=== PATIENT | female | born 1970 | race Caucasian/White ===

== ENCOUNTER → 2018-07-28 16:47 | Outpatient (CLI) | payer BC, SELFPAY ==
[2018-07-28 17:54] LABS: Absolute Lymphocyte Count 2.38 X10^3/ul (0.83-4.51); Absolute Neutrophil Count 6.2 X10^3/uL (2.0-7.7); Basophil# 0.03 X10^3/uL; Basophil% 0.3 % (0-1); Eosinophil# 0.26 X10^3/uL; Eosinophils% 2.7 % (0-5); Hematocrit 40.7 % (37-47); Hemoglobin 13.8 g/dl (12.0-15.0); Lymphocyte # 2.38 X10^3/ul (4.0); Lymphocyte % 25.1 % (19-41); Mean Corp Hgb Conc 33.9 g/gl (32-36); Mean Corpuscular Hgb 31.8 pg (27.0-32.0); Mean Corpuscular Volume 93.8 fL (81-99); Mean Platelet Vol. 10.9 fl (6.2-12.0); Monocyte# 0.64 X10^3/uL; Monocyte% 6.7 % (0-10); Neutrophil # 6.18 X10^3/uL (2.7-7.7); Neutrophil % 65.1 % (47-70); Platelet Count 339 K/mm3 (150-450); RBC Distribution Width CV 13.8 % (11.6-14.6); RBC Distribution Width SD 45.5 fl (35.1-43.9); Red Blood Count 4.34 M/mm3 (4.2-5.4); White Blood Count 9.5 K/mm3 (4.4-11.0)
[2018-07-28 17:58] LABS: POSITIVE COUNT NO; POSITIVE DIFFERENTIAL NO; POSITIVE MORPHOLOGY NO
[2018-07-28 18:37] LABS: AST(SGOT) 19 U/L (15-37); Alanine Aminotransfer ALT/SGPT 43 U/L (13-56); Albumin, Serum 3.7 g/dL (3.2-5.0); Alkaline Phosphatase 148 U/L (45-117); Bilirubin, Direct 0.07 mg/dL (0.00-0.30); Protein, Total 7.7 g/dL (6.4-8.2)
[2018-08-01 20:07] LABS: QNTFERON TB Ag Minus Nil Value < 0 IU/mL (.); QNTFERON TB Ag Value 0.03 IU/mL (.); QNTFERON TB Mitogen Value > 10.00 IU/mL (.); QNTFERON TB Nil Value 0.04 IU/mL (.)
[2018-08-02 13:57] LABS: QNTIFERON TB Gold Negative (Negative)
== END ==
PROVIDERS: Visit Provider Dermatology
DX: Z79.899 Other long term (current) drug therapy (principal)
CPT/HCPCS: 36415; 80076; 85025; 86480

== ENCOUNTER → 2019-03-26 12:44 | Outpatient (CLI) | payer BC, SELFPAY ==
[2019-01-01 08:48] VITALS: BMI 46.0
[2019-01-22 16:32] VITALS: BMI 46.0
--- NOTE | 2019-03-26 12:46 | CT_ITS ---
STUDY: CT CHEST WITH CONTRAST REASON FOR EXAM: Female, 48 years old. Lymphadenopathy. Pulmonary nodules. RADIATION DOSAGE (If Supplied By Facility): CTDIvol = ( 31.01 ) mGy, DLP = ( 838.54 ) mGycm TECHNIQUE: Transaxial imaging was performed following intravenous administration of 100 ml of Isovue 300 contrast material. Coronal and sagittal reformatted images were created. Individualized dose optimization techniques were used for this CT. COMPARISON: None FINDINGS: There are no pulmonary infiltrates or pleural effusions. There are no pulmonary nodules or masses. There is no pneumothorax. The heart and pericardium are within normal limits. There is mediastinal lymphadenopathy with the largest node measuring 1.3 cm in the upper paratracheal region. There is no evidence of thoracic aortic aneurysm. Images through the upper abdomen demonstrate a 2.2 cm indeterminate right adrenal nodule. There is fatty infiltration of the liver. There are no destructive osseous lesions. CT/Chest WITH Contrast IMPRESSION: Mild mediastinal lymphadenopathy. Clear lungs. Fatty liver. 2.2 cm indeterminate right adrenal nodule. Electronically Signed: Jean Kelly, at 15:40 EDT Tel , Service support ,
--- NOTE | 2019-03-27 08:04 | PFT ---
INTRODUCTION: The patient is a 48-year-old female that presents for pulmonary function studies secondary to a diagnosis of dyspnea. Respiratory therapy reports good patient effort. Bronchodilators were used during testing. INTERPRETATION: Forced expiration spirometry demonstrates no evidence of a large airways obstructive ventilatory defect. There was no significant response to aerosolized bronchodilators. Spirograms are of good quality and plateau normally. Body plethysmography was performed and reveals lung volumes to be within normal limits. Diffusing capacity by single breath CO is also within normal limits at 77% of predicted. IMPRESSION: Essentially normal pulmonary function studies.
== END ==
PROVIDERS: Family Provider Nurse Practitioner Family; PCP Nurse Practitioner Family; Referring Provider Internal Medicine Critical Care Medicine; Visit Provider Internal Medicine Critical Care Medicine
DX: R06.00 Dyspnea, unspecified (principal); R59.0 Localized enlarged lymph nodes; Z72.0 Tobacco use
CPT/HCPCS: 71260; 94060; 94726; 94729; Q9967

== ENCOUNTER → 2020-12-20 08:35 | Outpatient (CLI) | payer BC, SELFPAY ==
[2019-04-09 06:43] VITALS: BMI 45.6
[2020-12-20 10:34] LABS: Absolute Lymphocyte Count 1.69 X10^3/uL (0.83-4.51); Absolute Neutrophil Count 4.2 X10^3/uL (2.0-7.7); Basophil# 0.03 X10^3/uL; Basophil% 0.5 % (0-1); Eosinophils% 1.5 % (0-5); Hematocrit 41.6 % (37-47); Hemoglobin 13.9 g/dL (12.0-15.0); Lymphocyte # 1.69 X10^3/ul (4.0); Lymphocyte % 25.9 % (19-41); Mean Corp Hgb Conc 33.4 g/dL (32-36); Mean Corpuscular Hgb 31.5 pg (27.0-32.0); Mean Corpuscular Volume 94.3 fL (81-99); Mean Platelet Vol. 10.4 fl (6.2-12.0); Monocyte# 0.44 X10^3/uL; Monocyte% 6.7 % (0-10); NRBC Flagged by Analyzer 0 % (0-5); Neutrophil # 4.23 X10^3/uL (2.7-7.7); Neutrophil % 64.9 % (47-70); Platelet Count 340 K/mm3 (150-450); RBC Distribution Width CV 13.7 % (11.6-14.6); RBC Distribution Width SD 47.2 fl (35.1-43.9); Red Blood Count 4.41 M/mm3 (4.2-5.4); White Blood Count 6.5 K/mm3 (4.4-11.0)
[2020-12-20 10:47] LABS: AST(SGOT) 20 U/L (15-37); Alanine Aminotransfer ALT/SGPT 65 U/L (13-56); Albumin, Serum 3.3 g/dL (3.2-5.0); Alkaline Phosphatase 142 U/L (45-117); Bilirubin, Direct 0.06 mg/dL (0.00-0.30); Globulin 3.8 g/dL (2.2-4.2); Protein, Total 7.1 g/dL (6.4-8.2)
[2020-12-23 03:07] LABS: QNTFERON TB Mitogen Value > 10.00 IU/mL (.); QNTFERON TB Nil Value 0.02 IU/mL (.); QNTFERON TB1+ Ag Value 0.05 IU/mL (.); QNTFERON TB2+ Ag Value 0.03 IU/mL (.)
[2020-12-23 12:26] LABS: QNTIFERON TB Positive Criteria Negative (Negative)
== END ==
PROVIDERS: PCP Nurse Practitioner Family; Referring Provider Dermatology; Visit Provider Dermatology
DX: L40.0 Psoriasis vulgaris (principal); Z79.899 Other long term (current) drug therapy
CPT/HCPCS: 36415; 80076; 85025; 86480

== ENCOUNTER → 2023-11-14 | Outpatient (CLI) | payer BC, SELFPAY ==
--- OUTSIDE RECORDS SUMMARY | 2023-11-14 07:05 | XMS RPT_ITS | CCD ---
Author Name Unknown Address [address] [place] [address] Organization [facility] Care Team Providers Care Ginner Name Role Phone Camara, [place] L Unavailable Unavailable Camara, [place] L Unavailable Unavailable Camara, [place] L Unavailable Unavailable Camara, [place] L Unavailable Unavailable SONAL CRUZ Unavailable Unavailable DEHASS ELDER, MAMIE Unavailable Unavailable SRINIVAS BRICEÑO Unavailable Unavailab le DEHASS ELDER, MAMIE Unavailable Unavailable SRINIVAS BRICEÑO Unavailable Unavailab le DEHASS ELDER, MAMIE Unavailable Unavailable Dehass Elder, Mamie Unavailable [phone] KELLOGGLILLIAN Marcial Unavailable Unavailable SELF, SELF Unavailable Unavailable Unavailable Primary Care Provider UnavailMamie Benjamin Primary Care Provider [phone] DEHASS ELDER, MAMIE Primary Care Unavailable SURYA BRUCE Attending Unavailable CRISTY RAMOS Primary Care Physicia n REMINGTON HOLMAN Attending Unavailable CLAUDINE WHALEY Attending Unavail able Mamie Barlow CNP Primary Care Provider BRANDY LEO MD Attending Unavailable CRISTY RAMOS Primary Care Unava ilable KIMBERLY MILES Unavailable EITAN BARRY MD Attending Unavailable CRISTY RAMOS Primary Care Unava ilable CRISTY RAMOS Primary Care Unava ilable QUENTIN DUBOSE PA-C Attending Unavailable BRANDY LEO MD Attending Unavailable CRISTY RAMOS Primary Care Unava ilable BRANDY LEO MD Attending Unavailable CRISTY RAMOS Primary Care Unava ilable Unavailable Primary Care Provider Unavailkarlos DOWS, MYRTLE M.D. Consulting Unavailab ELIANA Kaufman Admitting Unavailable ELIANA ALCANTAR Attending Unavailable CRISTY OWEN CNP Referring Unavailable CRISTY OWEN CNP Consulting Unavailable JOHN CLAYTON DO Attending Unavailable JOHN CLAYTON DO Primary Care Unavailable JOHN CLAYTON DO Admitting Unavailable PROVIDER, UNKNOWN Consulting Unavailable PROVIDER, UNKNOWN Consulting Unavailable Allergies Allergy Classification Reported Allergen(s) Allergy Type Date of Onset Reaction(s) Facility (5 sources) Adhesive agent; Translations: [ADHESIVE] Propensity to adverse reactions to drug (disorder) 12-22-19 15 [facility] (2 sources) empagliflozin; Translations: [empagliflozin] Drug Allergy yeast infection [facility] (2 sources) metFORMIN; Translations: [metformin] Drug Allergy severe diarrhea, yeast infection [facility] [place] (1 source) Adhesive Tape Propensity to adverse reactions to substance 12-22-19 [facility] (1 source) Adhesive Tape; Translations: [TAPE] Propensity to adverse reactions (disorder) [facility] Repository Medications Current Medications Medication Drug Class(es) Dates Sig (Normalized) Sig (Original) Alcohol Swabs (1 source) Start: 10-01-2019 Alcohol Swabs See Instructions, 1 box, # 1 EA, 0 Refill(s), Pharmacy: [facility][id number], Uncontrolled diabetes mellitus Start Date: 10/01/19 Status: Ordered atorvastatin 80 mg oral tablet (6 sources) HMG-CoA Reductase Inhibitor Start: 07-24-2022 End: 10-17-2023 atorvastatin 80 mg oral tablet Dose : 80 mg = 1 tab(s), Oral, qDay, # 90 tab(s), 4 Refill(s), Pharmacy: [facility], 149, cm, 07/24/22 15:57:00 EDT, Height Start Date: 07/24/22 Stop Date: 10/17/23 Status: Ordered Completed/Discontinued Medications Medication Drug Class(es) Dates Sig (Normalized) Sig (Original) 200 actuat albuterol 0.09 mg/actuat dry powder inhaler (1 source) beta2-Adrenergic Agonist Start: 07-28-2019 take 2 puff(s) by inhalation every six hours as needed albuterol sulfate 90 mcg/actuation aepb Indications: Acute bronchitis, unspecified organism Inhale 2 Puffs as instructed every 6 hours as needed. 1 Inhaler 0 07/28/2019 Active Problems Active Problems Problem Classification Problem Date Documented Da te Episodic/Chronic Acute bronchitis (1 source) Acute bronchitis; Translations: [Acute bronchitis, unspecified organism] Episodic Cardiac and circulatory congenital anomalies (1 source) Heart disease; Translations: [Congenital malformation of heart, unspecified] Onset: 07-16-2012 07-16-2012 Chronic Cardiac dysrhythmias (8 sources) Paroxysmal atrial fibrillation; Translations: [Paroxysmal atrial fibrillation] Onset: 06-28-2016 06-28-2016 Chronic Past or Other Problems Problem Classification Problem Date Documented Da te Episodic/Chronic Mycoses (1 source) Candidiasis of skin; Translations: [Candidiasis of skin and nail] Onset: 08-31-2013 11-13-2021 Episodic Other female genital disorders (1 source) Burning sensation of vulva; Translations: [Other specified conditions associated with female genital organs and menstrual cycle] Onset: 08-17-2013 08-17-2013 Episodic Other inflammatory condition of skin (1 source) Seborrheic dermatitis; Translations: [Other seborrheic dermatitis] Onset: 12-05-2006 12-05-2006 Episodic Residual codes; unclassified (3 sources) Tobacco user; Translations: [Tobacco use] Onset: 10-02-2017 04-06-2020 Episodic Results Test Name Value Interpretation Reference Range Facil ity Vital Signs Date Time Vital Sign Value Performing Clinician Faci lity 07-28-2022 19:27-0400 Body temperature 98.42 [degF] SPENCER FLETCHER MD [facility] 07-28-2022 19:27-0400 Body weight 82.5 kg SPENCER FLETCHER MD [facility] 07-28-2022 19:27-0400 Diastolic blood pressure 105 mm[Hg] SPENCER FLETCHER MD [facility] 07-28-2022 19:27-0400 Heart rate 79 /min SPENCER FLETCHER MD [facility] 07-28-2022 19:27-0400 Respiratory rate 20 /min SPENCER FLETCHER MD [facility] 07-28-2022 19:27-0400 Systolic blood pressure 165 mm[Hg] SPENCER FLETCHER MD [facility] 07-09-2022 13:54-0400 Diastolic blood pressure 56 mm[Hg] BRANDY LEO MD [address] [place] [address] 07-09-2022 13:54-0400 Heart rate 53 /min BRANDY LEO MD [address] [place] [address] 07-09-2022 13:54-0400 Respiratory rate 16 /min BRANDY LEO MD [address] [place] [address] 07-09-2022 13:54-0400 Systolic blood pressure 97 mm[Hg] BRANDY LEO MD [address] [place] [address] 07-09-2022 13:40-0400 Diastolic blood pressure 54 mm[Hg] BRANDY LEO MD [address] [place] [address] 07-09-2022 13:40-0400 Mean blood pressure 66 mm[Hg] BRANDY LEO MD [address] [place] [address] 07-09-2022 13:40-0400 Systolic blood pressure 90 mm[Hg] BRANDY LEO MD [address] [place] [address] 07-09-2022 13:34-0400 Diastolic blood pressure 60 mm[Hg] BRANDY LEO MD [address] [place] [address] 07-09-2022 13:34-0400 Heart rate 54 /min BRANDY LEO MD [address] [place] [address] 07-09-2022 13:34-0400 Mean blood pressure 71 mm[Hg] BRANDY LEO MD [address] [place] [address] 07-09-2022 13:34-0400 Systolic blood pressure 94 mm[Hg] BRANDY LEO MD [address] [place] [address] 07-09-2022 13:29-0400 Heart rate 51 /min BRANDY LEO MD [address] [place] [address] 07-09-2022 13:29-0400 Mean blood pressure 68 mm[Hg] BRANDY ELO MD [address] [place] [address] 07-09-2022 12:48-0400 Body temperature 98.6 [degF] BRANDY LEO MD [address] [place] [address] 07-09-2022 12:48-0400 Respiratory rate 18 /min BRANDY LEO MD [address] [place] [address] 07-06-2022 14:55-0400 Body height 149.9 cm BRANDY LEO MD [address] [place] [address] 07-06-2022 14:55-0400 Body weight 79.2 kg BRANDY LEO MD [address] [place] [address] 07-06-2022 14:55-0400 Body weight 35.25 kg/m2 BRANDY LEO MD [address] [place] [address] 10-10-2020 09:17-0500 Respiratory Rate 20 /min [facility] 10-10-2020 09:15-0500 BMI (Body Mass Index) 42.41 kg/m2 [facility] 10-10-2020 09:15-0500 Body Temperature 99.19 [degF] [facility] 10-10-2020 09:15-0500 Body weight 95.25 kg [facility] 10-10-2020 09:15-0500 BP Diastolic 80 mm[Hg] [facility] 10-10-2020 09:15-0500 BP Systolic 140 mm[Hg] [facility] 10-10-2020 09:15-0500 Height 149.9 cm [facility] 10-10-2020 09:15-0500 Pulse (Heart Rate) 105 /min [facility] 10-10-2020 09:15-0500 Pulse Oximetry 98 % [facility] 05-07-2018 15:12-0400 BMI (Body Mass Index) 44.23 kg/m2 Sriniavs Briceño [facility] 05-07-2018 15:120400 BP Diastolic 53 mm[Hg] Srinivas Briceño [facility] 05-07-2018 15:12-0400 BP Systolic 105 mm[Hg] Srinivas Briceño [facility] 05-07-2018 15:120400 Height 149.9 cm Srinivas Briceño [facility] 05-07-2018 15:12-0400 Pulse (Heart Rate) 75 /min Srinivas Briceño [facility] 05-07-2018 15:120400 Pulse Oximetry 92 % Srinivas Briceño [facility] 05-07-2018 15:120400 Weight 99.34 kg Srinivas Briceño [facility] Encounters Encounter Date Encounter Type Care Provider Facility Start: 08-02-2023 End: 08-03-2023 Emergency department patient visit CRISTY MEI [facility] Start: 05-27-2023 End: 05-28-2023 Evaluation and management of inpatient MYRTLE RodríguezBrant [facility] Facility:[facility] Start: 05-27-2023 End: 05-28-2023 Subsequent hospital visit by physician Provider [facility] Procedures Date Procedure Procedure Detail Performing Clinician Start: 05-28-2023 CBC + DIFF Provider [facility] Start: 05-28-2023 Comprehensive metabolic 2000 panel - Serum or Plasma Provider [facility] Start: 05-27-2023 Ct abdomen & pelvis w/contrast material Provider [facility] Start: 05-27-2023 BASIC METABOLIC PNL Stalin B Diop DO Work Phone: Start: 05-27-2023 CBC + DIFF Stalin B Diop DO Work Phone: Start: 05-27-2023 HEPATIC FUNCTION PNL Stalin B Diop DO Work Phone: Start: 05-27-2023 LIPASE BLD Stalin B Diop DO Work Phone: Start: 05-27-2023 URINALYSIS, DIPSTICK ONLY Stalin B Jadon DO Work Phone: Start: 02-01-2021 Gastric sleeve BRANDY LEO MD Start: 10-10-2020 POC COVID-19, MOLECULAR [facility] Start: 10-01-2019 Cardiac catheterization BRANDY LEO MD Start: 02-02-2014 Mammography Provider [facility] Start: 06-05-2013 Cardiac catheterization Cardiac catheterization( Confirmed ) BRANDY LEO MD Partial hysterectomy BRANDY LEO MD Sling operation stre ss incontinence BRANDY LEO MD Plan of Treatment Date Care Activity Detail Author Start: 05-28-2026 DIABETES SCREEN DIABETES SCREEN [facility] Start: 07-19-2023 Influenza vaccination INFLUENZA (#1) [facility] Start: 07-19-2022 Influenza vaccination Sequential Influenza Vaccine (#1) [facility] Start: 2021 Administration of herpes zoster vaccine Zoster Vaccines (1 of 2) [facility] Start: 2021 Influenza vaccination LUNG CANCER SCREENING [facility] Start: 2021 Screening for malignant neoplasm of colon Flexible sigmoidoscopy [facility] Start: 02-01-2021 LIPID SCREEN LIPID SCREEN [facility] Start: 07-19-2020 Influenza vaccination given Sequential Influenza Vaccine (#1) [facility] Start: 10-06-2018 HPV TESTING HPV TESTING [facility] Start: 10-06-2018 PAP TESTING PAP TESTING [facility] Start: 07-19-2018 Influenza vaccination [facility] Start: 2016 COLOGUARD (FIT-DNA) COLOGUARD (FIT-DNA) [facility] Start: 2016 Colonoscopy COLONOSCOPY [facility] Start: 2016 COLORECTAL CANCER SCREENING COLORECTAL CANCER SCREENING [facility] Start: [address] COLONOGRAPHY [facility] Start: 2016 FECAL OCCULT BLOOD FECAL OCCULT BLOOD [facility] Start: 2016 SIGMOIDOSCOPY SIGMOIDOSCOPY [facility] Start: 02-02-2015 Mammography MAMMO[address] [facility] Start: 2011 Fasting lipid profile LIPID SCREENING [facility] Start: 2011 Protein mass conc MAMMOGRAM SCREENING DISCUSSION [facility] Start: 2011 Screening for malignant neoplasm of breast Mammogram [facility] Start: 1992 Screening for malignant neoplasm of cervix PAP SMEAR DISCUSSION [facility] Start: 1990 SHINGRIX VACCINE (1 of 2) SHINGRIX VACCINE (1 of 2) [facility] Start: 1990 Third diphtheria, tetanus and acellular pertussis (DTaP) vaccination TDAP (ADULT) [facility] Start: 1990 Urine microalbumin profile DTAP,TDAP,TD (1 - Tdap) [facility] Start: 1989 Hepatitis C antibody, confirmatory test Hepatitis C Screening [facility] Start: 1989 Hepatitis C screening Hepatitis C Screening [facility] Start: 1989 HEPATITIS C SCREENING HEPATITIS C SCREENING [facility] Start: 1989 HIV SCREENING HIV SCREENING [facility] Start: 1989 Tetanus vaccination TETANUS [facility] Start: 1986 HIV screening HIV Screening [facility] Start: 1984 HIV screening HIV SCREENING DISCUSSION [facility] Start: 1983 Adolescent depression screening assessment Depression Screening (PHQ9) [facility] Start: 1983 Depression screening using PHQ-9 (Patient Health Questionnaire 9) score Depression Screening (PHQ-2/9) [facility] Start: 1977 PNEUMOCOCCAL (1 - PCV) PNEUMOCOCCAL (1 - PCV) [facility] Start: 1977 Pneumococcal Vaccine: Ped or At-Risk (1 - PCV) Pneumococcal Vaccine: Ped or At-Risk (1 - PCV) [facility] Start: 1974 History and physical examination, annual for health maintenance Wellness Visit [facility] Start: 1971 COVID-19 Vaccine (#1) COVID-19 Vaccine (#1) [facility] Start: 1971 HEPATITIS B (1 of 3 - 3-dose series) HEPATITIS B (1 of 3 - 3-dose series) [facility] Start: 1971 Screening for malignant neoplasm of cervix PAP SMEAR [facility] Start: 1971 Screening for malignant neoplasm of colon [facility] Start: 1971 Screening mammography Mammogram [facility] Start: 1971 Tetanus vaccination [facility] Payers Date Payer Category Payer Self-pay 2022 Unknown [id number] 2021 Unknown [id number] 2017 Unknown EARL ELLIOTT [employer] PPO POS xxxxxxxxxxxx 2017-Present xxxxxxxxxxxx [id number] 2016 [facility] [id number] 2016 Unknown [id number] 1971 Unknown [id number] 1971 Unknown [id number] 1971 Unknown [id number] 1971 Unknown [id number] 1971 Unknown [id number] [id number] 1971 Unknown [id number] 627 1971 Unknown [id number] Unknown [id number] Social History Date Type Detail Facility Start: 10-20-2015 End: 05-07-2018 Tobacco smoking status [facility] Current every day smoker [facility] Start: 05-07-2018 End: 10-26-2020 Cigarettes smoked current (pack per day) - Reported [facility] Start: 1970 Sex Assigned At Not on file O [facility] End: 04-23-2016 History of tobacco use Smoker [facility] Start: 05-01-2016 End: 10-10-2020 Tobacco use and exposure Former user [facility] End: 04-13-2016 History of tobacco use User of smokeless tobacco [facility] Start: 10-10-2020 End: 07-04-2022 Alcohol intake Current non-drinker of alcohol (finding) [facility] Start: 09-10-2020 End: 10-10-2020 Exposure to SARS-CoV-2 (event) Not sure [facility] Start: 02-08-2022 Tobacco smoking status Heavy t obacco smoker (finding) [facility] Sex Assigned At Female [facility] Start: 05-01-2016 Tobacco smoking stat us NHIS Ex-smoker [facility] End: 04-23-2016 History of tobacco use Cigarette Smoker [facility] Start: 04-27-2016 Tobacco Comment recently quit [facility] Start: 10-20-2015 Tobacco use and exposure Smoke less tobacco non-user [facility] Start: 10-26-2020 End: 07-04-2022 Tobacco use panel [facility] National Score (1-10 0), lower number is lower risk Not on file [facility] Start: 10-20-2015 Tobacco Comment 2 cigs a day [facility] Medical Equipment Procedure Code Equipment Code Equipment Origin al Text Equipment Identifier Dates See Instructions , #200 Re: BID testing., # 1 EA, 0 Refill(s), Pharmacy: [facility] #[id number], Uncontrolled diabetes mellitus Start: 10-01-2019 See Instructions , #200 Re: BID testing., # 1 EA, 1 Refill(s), Pharmacy: [facility] #[id number], Uncontrolled diabetes mellitus Start: 10-01-2019 Functional Status Date Assessment Result Facility 07-09-2022 Functional Status Independent [facility] 07-09-2022 Functional Status Standard Safet y ID band on, Allergy Band on [facility] 07-06-2022 Functional Status Sensory Deficits None A [facility] Mental Status Date Assessment Result Facility 07-09-2022 Mental Status Orientation Oriented x 4 [facility] 07-09-2022 Mental Status [facility] Clinical Notes 12-05-2006 to 05-28-2023 Robert Serrano MD - 05/28/2023 2:45 PM EDTCchs, Dutch - 05/27/2023 4:39 PM EDTInstructionsLaboratoryRadiology Note Date & Type Note Facility 05-28-2023 History of Present illness [place] [address] QUICK NOTE Patient: VANESSA PAREKH ROBERT SERRANO M.D. [id number] F Status: DIS [place] 2SWEST 2934-A Report Date & Time: 05/28/23 1523 Change Of Status Additional Notes dictation number [id number] <Electronically signed by ROBERT SERRANO M.D.> 05/28/23 1524 ROBERT SERRANO M.D. << Signature on File>> Reported By: ROBERT SERRANO M.D. Signed By: ROBERT SERRANO M.D. Tests performed at: [facility] [address] [place] [address] QUICK NOTE Patient: VANESSA PAREKH ELIANA ALCANTAR M.D. [id number] F Status: REG ER ED Report Date & Time: 05/27/23 1639 Change Of Status Additional Notes [id number] <Electronically signed by ELIANA ALCANTAR M.D.> 05/27/23 1641 ELIANA ALCANTAR M.D. << Signature on File>> Reported By: ELIANA ALCANTAR M.D. Signed By: ELIANA ALCANTAR M.D. Tests performed at: [place] [address] documented in this encounter [facility] 05-28-2023 Hospital Discharge instructions Robert Serrano MD - 05/28/2023 2:11 [place] [address] HEALTH INFORMATION MANAGEMENT IP DISCHARGE INSTRUCTIONS Patient: VANESSA PAREKH ROBERT SERRAON M.D. [id number] F Status: ADM [place] 2SWEST 2934-A Date of Admission: 05/27/23 Date of Discharge: InPatient Discharge Discharge Diagnosis diverticulitis Condition on Discharge Stable Diet Regular Activity As Tolerated Follow up pcp within 2 weeks of discharge <Electronically signed by ROBERT SERRANO M.D.> 05/28/23 1412 5.28 ___ ROBERT SERRANO M.D. IN A FEW DAYS YOU WILL RECEIVE OUR PATIENT SURVEY IN THE MAIL. PLEASE TAKE A FEW MINUTES TO COMPLETE THE SURVEY AND LET US KNOW HOW WELL WE MET YOU NEEDS. FEEL FREE TO ADD ANY COMMENTS OR SUGGESTIONS. THANK YOU FOR CHOOSING [facility]. << Signature on File>> Reported By: ROBERT SERRANO M.D. Signed By: ROBERT SERRANO M.D. Tests performed at: [address] [address] documented in this encounter [facility] 07-28-2022 Note ORIGINAL EXAMINATION: ONE XRAY VIEW OF THE CHEST 07/28/2022 8:23 pm COMPARISON: Radiograph of the chest September 29, 2019 HISTORY: ORDERING SYSTEM PROVIDED HISTORY: Reason for Exam: chest pain FINDINGS: Cardiomediastinal silhouette is normal in size. No focal consolidation, pleural effusion or pneumothorax. No acute osseous abnormality. IMPRESSION: No focal consolidation or pleural effusion. Interpreted by: Quentin Miranda Preliminary Report By: Quentin Miranda Electronically signed By Quentin Miranda Dictated Date: 07/28/2022 8:25:27 PM Prelim Date: 07/28/2022 8:26:26 PM Sign Date: 07/28/2022 8:26:26 PM Ordering Provider: EDWARD [facility] 07-28-2022 Note ORIGINAL EXAMINATION: ONE XRAY VIEW OF THE CHEST 07/28/2022 8:23 pm COMPARISON: Radiograph of the chest September 29, 2019 HISTORY: ORDERING SYSTEM PROVIDED HISTORY: Reason for Exam: chest pain FINDINGS: Cardiomediastinal silhouette is normal in size. No focal consolidation, pleural effusion or pneumothorax. No acute osseous abnormality. IMPRESSION: No focal consolidation or pleural effusion. Interpreted by: Quentin Miranda Preliminary Report By: Quentin Miranda Electronically signed By Quentin Miranda Dictated Date: 07/28/2022 8:25:27 PM Prelim Date: 07/28/2022 8:26:26 PM Sign Date: 07/28/2022 8:26:26 PM Ordering Provider: [facility] 07-09-2022 Hospital Discharge instructions Patient Education 07/09/2022 13:49:23 Radiology- CT Coronary Angiogram (CUSTOM) [place] Coronary CT Angiogram (Coronary CTA or Cardiac CTA) Discharge Instructions [facility] [address] [place] [address] Today, you had a Coronary CT Angiogram. This procedure was done to look at the anatomy of your heart and the surrounding vessels. The images obtained are to help evaluate the presence of coronary heart disease. These instructions should be followed after your procedure to reduce the chance of experiencing complications. Please follow the instructions below to reduce the chance of experiencing complications. Activity: Rest for the remainder of the day. You may resume your normal activity tomorrow. Avoid alcoholic beverages for 24 hours after your procedure. Do not drive or operate heavy machinery for 24 hours after your procedure. Do not make any legal decisions for 24 hours after your procedure. Diet: Resume your normal diet as tolerated. Medication: Please resume home medications as tolerated, do not take anymore Metoprolol today, resume tomorrow as scheduled. When to seek medical help: Arm, neck or jaw pain Angina (chest pain) or chest discomfort Shortness of breath Dizziness or lightheaded Hives or itching If you experience any of these issues during the first 24 hours, please follow the instruction below or go to the Emergency Department: For the first 24 hours call [phone] After 24 hours, contact the physician who ordered this procedure for you. Obtaining test results: Please make an appointment with your doctor to obtain your test results. They are usually available within 4 to 5 business days. Do not assume everything is normal if you have not heard from your doctor or medical facility. It is important for you to follow up on all of your test results. Follow Up Care 05/10/2022 14:04:22 With:BRANDY LEO Address: [address] [place] [address] [address] [facility] [place] [address]- [phone] Business (1) When: Unknown Comments:Follow-up as scheduled [facility] 07-09-2022 Note Haily Hall RN: SIGN, AUTHOR, PERFORM Event Display: CT Procedure Record Authored Date: CT Procedure Record Summary Primary Physician: KIMBERLY MILES DO Finalized Date/Time: 07/09/22 13:43:26 Pt. Name: PAREKHVANESSAO.B./Sex: 1970 Female Med Rec #: [id number] Physician: Financial #: [id number] Pt. Type: O Room/Bed: / Admit/Disch: 07/09/22 12:26:00 - Institution: Allergies identified in patient's electronic medical record at time of printing on 07/09/22 Entry 1 Entry 2 Substance Jardiance metFORMIN Reaction Type Allergy Allergy Last Modified By: Jennifer Nicolas LPN, Melissa LPN 03/17/20 10:44:36 03/17/20 10:44:36 Case Attendance- CT Entry 1 Entry 2 Entry 3 Case Attendee KIMBERLY MILES Hailey E RN Fuzer, Rad Tech Lynn M Role Performed Primary Surgeon Procedure Nurse Packager Details Time In 07/09/22 13:24:00 07/09/22 13:24:00 07/09/22 13:24:00 Time Out 07/09/22 13:25:00 07/09/22 13:41:00 07/09/22 13:41:00 Procedure/Preference CT Coronary Angiography CT Coronary Angiography CT Coronary Angiography Card W+W/O Contrast ( W+W/O Contrast ( W+W/O Contrast ( Last Modified By: Haily Hall RN, Hailey E RN Sabol, Hailey E RN 07/09/22 13:42:24 07/09/22 13:42:24 07/09/22 13:42:36 Radiology Procedures- CT Entry 1 Procedure/Preference CT Coronary Angiography Actual Procedure CT CORONARY ANGIOGRAPHY Card W+W/O Contrast (SN) W+W/O CONTRAST Primary Procedure Yes Primary Surgeon KIMBERLY MILES DO Anesthesia/Sedation None Type Additional Procedure Times Start 07/09/22 13:30:00 Stop 07/09/22 13:38:00 Specialty Service SN Radiology Procedure EBL 0 mL Last Modified By: Haily Hall RN 07/09/22 13:43:22 General Case Data- CT Entry 1 Case Information Room AH CT 1 Case Level None Wound Class None Specialty SN Radiology Procedure ASA Class None Diagnosis Preop Diagnosis Coronary artery Postop Same As Preop Yes disease, chest pain, shortness of breath Postop Diagnosis Coronary artery disease, chest pain, shortness of breath Last Modified By: Haily Hall RN 07/09/22 13:28:11 Medication Administration- CT Entry 1 Medication Sublingual Nitro Time Administered 07/09/22 13:35:00 Route of Admin Buccal Volume 0.4 mg VORB Administered by No Administered by: Haily Hall RN Physician? Last Modified By: Haily Hall RN 07/09/22 13:37:15 Procedure Case Times- CT Entry 1 Patient In Procedure Patient In OR 07/09/22 13:24:00 Patient Out of OR 07/09/22 13:41:00 Procedure Start/Stop Procedure Start Time 07/09/22 13:30:00 Procedure Stop Time 07/09/22 13:38:00 Last Modified By: Haily Hall RN 07/09/22 13:41:21 Allergy Information- CT Entry 1 Allergies Reviewed? Yes Allergies Reviewed Patient With Last Modified By: Haily Hall RN 07/09/22 13:24:52 Radiology Protocols/Time Out- CT Entry 1 Preprocedure Clinician Verifies Correct patient ID When Clinically Confirmation of correct using name & date Indicated side(s) and site(s), or MRN, Accurate Correct diagnostic and procedure, complete radiology tests Informed Consent available OR/Procedure Room/Bedside Time 07/09/22 13:26:00 Clinician Verifies Correct patient identity including EMR & records using name and date or medical record number, Accurate procedure consent form, Correct patient position, Necessary equipment is available When Applicable Confirmation correct side and site marked, Relevant images and results are properly labeled and appropriately displayed Instrument Sterility Procedure CT Coronary Angiography W+W/O Contrast ( Last Modified By: Haily Hall RN 07/09/22 13:26:28 Patient Positioning - CT Entry [address] Coronary Angiography Body Position OP Supine W+W/O Contrast ( Feet Uncrossed? Yes Pressure Points Yes Checked Last Modified By: Haily Hall RN 07/09/22 13:26:36 Radiology Procedure Plan - CT Entry 1 Radiology - Nursing Care Plan Outcome Statement The patient's value Outcome Statement The patient receives system, lifestyle, Cont. appropriate ethnicity, and culture medication(s), safely are considered, administered during the respected, and perioperative/invasive incorporated in the period., The patient is perioperative plan of free from signs and care., The patient is symptoms of injury free from signs and caused by extraneous symptoms of infection. objects (equipment, instrumentation, sponges, or sharps)., The patient is free from signs and symptoms of electrical injury. Radiology - Action Plan Action Plan - Patient's value system, Outcome Statement lifestyle, ethnicity, and culture are considered, respected, and incorporated in the perioperative plan of care., Patient is free from signs and symptoms of infection., Patient is free from signs and symptoms of injury related to positioning., Patient is free from signs and symptoms of chemical injury., Patient receives appropriate medication(s), safely administered during the perioperative period., Patient is free from signs and symptoms of injury caused by extraneous objects (equipment, instrumentation, sponges, or sharps). Ginner Haily Hall RN Completing Procedure Plan Last Modified By: Haily Hall RN 07/09/22 13:27:51 Radiology Lines and Procedures- CT Entry 1 Radiology Sedation Case Times Sedation Total Time 0 Radiology - Fluid/Drainage RAD - CT Guidewires, Cath... Radiology Urinary Catheter Radiology - CT Other Items Radiology Contrast Contrast Used? Yes Dose 66 mL Medication OMNIPAQUE 350 096RO88/PK Y-542 Radiology Procedure Site Last Modified By: Haily Hall RN 07/09/22 13:28:56 Transfer Post Procedure- CT Entry 1 RAD - Transport to Recovery Patient Transported IV Via Cart With Post-op Destination Receiving Transported By Haily Hall RN Post Procedure Time Out Double Verification Yes Date/Time Verified 07/09/22 13:27:00 of ID band on patient Completed Verfied ID Band on Haily Hall RN by Last Modified By: Haily Hall RN 07/09/22 13:29:08 Case Comments <None> Finalized By: Haily Hall RN Document Signatures Signed By: Haily Hall RN 07/09/22 13:43 [facility] 07-09-2022 Summary of episode note Discharge Instructions Thank you for allowing [facility] to assist you with your healthcare needs. The following is important discharge information regarding your hospital visit. Your Care Team CRISTY OWEN What to do next Scheduled Follow-Up Appointments Appointment Type When Where Contact InformationCV OV 07/24/2022 04:00 PM EDT [facility] Follow Up with BRANDY LEO When Why: Follow-up as scheduled Where: [address] [place] [address] [address] [place] [address]- [phone] Business (1) Allergies Jardiance (yeast infection, Yeast Infection) metFORMIN (severe diarrhea, yeast infection) Medications Please ask your primary doctor or pharmacist before taking any other medication not listed, including over the counter drugs, herbal medications, vitamins and or supplements as they may interact with your home medications. What How Much When Why Instructions Last Dose Unchanged atorvastatin (atorvastatin 40 mg oral tablet) 1 tab(s) by mouth Every day Unchanged cholecalciferol (Vitamin D3) 2,000 unit(s) by mouth Every day Unchanged cyanocobalamin (Vitamin B12 250 mcg oral tablet) 1 tab(s) by mouth Every day Unchanged dilTIAZem (dilTIAZem 180 mg/ 24 hours oral tablet, extended release) 1 tab(s) by mouth Once a day Unchanged DME (Alcohol Swabs) See instructions Uncontrolled diabetes mellitus 1 box Unchanged DME (Blood Glucose Test Machine) See instructions Uncontrolled diabetes mellitus Device as determined by insurance coverage Unchanged DME (Blood Glucose Test Strips) See instructions Uncontrolled diabetes mellitus #200 Re: BID testing. Unchanged DME (Lancets) See instructions Uncontrolled diabetes mellitus #200 Re: BID testing. Unchanged losartan (losartan 25 mg oral tablet) 1 tab(s) by mouth Once a day Duration: 90 Days Unchanged metoprolol (metoprolol tartrate 50 mg oral tablet) 1 tab(s) by mouth Once a day Unchanged rivaroxaban (Xarelto 20 mg oral tablet) 1 tab(s) by mouth Once a day (in the evening) Duration: 90 Days Unchanged venlafaxine (venlafaxine 150 mg oral capsule, extended release) Once a day TK 1 C PO D Please take this list to your next doctor s visit. Bring all medications you take, including over the counter medications, herbals and other supplements with you to your doctor s visit. Patients and families are reminded to discard old lists and to update any records with all medication providers or retail pharmacies. Education Materials [place] Coronary CT Angiogram (Coronary CTA or Cardiac CTA) Discharge Instructions [facility] Imaging Services [address] [place] [address] Today, you had a Coronary CT Angiogram. This procedure was done to look at the anatomy of your heart and the surrounding vessels. The images obtained are to help evaluate the presence of coronary heart disease. These instructions should be followed after your procedure to reduce the chance of experiencing complications. Please follow the instructions below to reduce the chance of experiencing complications. Activity: Rest for the remainder of the day. You may resume your normal activity tomorrow. Avoid alcoholic beverages for 24 hours after your procedure. Do not drive or operate heavy machinery for 24 hours after your procedure. Do not make any legal decisions for 24 hours after your procedure. Diet: Resume your normal diet as tolerated. Medication: Please resume home medications as tolerated, do not take anymore Metoprolol today, resume tomorrow as scheduled. When to seek medical help: Arm, neck or jaw pain Angina (chest pain) or chest discomfort Shortness of breath Dizziness or lightheaded Hives or itching If you experience any of these issues during the first 24 hours, please follow the instruction below or go to the Emergency Department: For the first 24 hours call [phone] After 24 hours, contact the physician who ordered this procedure for you. Obtaining test results: Please make an appointment with your doctor to obtain your test results. They are usually available within 4 to 5 business days. Do not assume everything is normal if you have not heard from your doctor or medical facility. It is important for you to follow up on all of your test results. Additional Information VACCINATE! IT SAVES LIVES! Members of the community who have not yet received the COVID-19 vaccine and would like to receive it can visit one of [facility] vaccine clinics. There are many vaccine clinic locations within the [facility]. For locations and available times, please visit [email or web address] It is important to note that some COVID mobile vaccine clinics are held outdoors and may be canceled in rainy or stormy conditions. To learn more about pediatric vaccinations (ages 5-11), we invite you to visit the [email or web address] webpage. [email or web address] To learn more about the COVID-19 vaccine, we invite you to visit the [facility] website for a list of frequently asked questions. [email or web address] [email or web address] [facility] Patient Portal Access Instructions: Stay connected with your healthcare team and access your personal medical information anytime with the [facility] Patient Portal.If you would like a full copy of your medical records, please contact the [facility] Medical Records Department, Saturday through Saturday between 8a.m. and 4:30p.m. Please follow the directions below to access the portal: 1.Access the email account you provided upon registration to the [facility].2.Look for an invitation email from [facility].3.Open the email and access the invitation link: Accept Invitation to [facility]4.Fill in the required jimenez to create your account. Sign into www.[employer] with your username and password that you created in the above steps to stay up to date. You can then view a summary of results, a summary of your visits, and the ability to download your summaries to your computer or send the information securely to a physician. Remember that your healthcare information is confidential, so carefully consider who you will allow to register on the [facility] Patient Portal for access to your information. You can also access the [facility] Patient Portal on the [facility] seble. Simply click on Health Records under Health Data and then click on the [employer] logo. HOW TO SAFELY DISPOSE OF PRESCRIPTION MEDICATIONS Please use one of the following methods to safely dispose of your unused medications. 1.Use a drug disposal kit: the drug disposal pouch allows you to safely discard your old and unused drugs. Ask your nurse to give you one when you are discharged.2.Visit a local take-back location: Many local pharmacies and police departments have programs that collect old and unwanted prescription drugs. Call your local pharmacy or go to http://[employer].Fundgrazing/9I5Nr8i to find one close to you.3.Make use of household items: Use cat litter or old coffee grounds to dispose medications if other options are not available. Mix your drugs with these household products, seal them in an airtight container and throw it into the garbage. Call [facility]: [phone] to be sure your drugs can be disposed of in this way. Some medicines may require a different approach.4.Never flush your medications down the toilet. IF YOU HAVE BEEN PRESCRIBED AN OPIOID FOR PAIN If you have been prescribed an opioid (such as hydrocodone, oxycodone or morphine), it is critical to understand the possible side effects and risks of opioid pain medications. Even when taken as directed, opioids can have several side effects including: Tolerance, meaning you might need to take more of a medication for the same pain relief. Nausea, vomiting and/or constipation. Sleepiness, dizziness, dry mouth, confusion, depression or itching. Physical dependence, meaning you have withdrawal symptoms when a medication is stopped, can develop within a few days. KNOW YOUR RESPONSIBILITIES It is important to know exactly how much and how often to take the opioid pain medications you are prescribed. Never take opioids in higher amounts or more often than prescribed. Do not combine opioids with alcohol or other drugs that cause drowsiness, such as benzodiazepines, also known as benzos, including diazepam and alprazolam, muscle relaxants or sleep aids. Never sell or share prescription opioids. This is illegal. Store opioids in a secure place and out of reach of others (including children, family, friends and visitors). The last page of this document has been signed and retained as a CHART COPY. Signatures Patient Education Materials Radiology- CT Coronary Angiogram (CUSTOM) Medication Leaflets My discharge plan and instructions have been reviewed and explained to me and I,VANESSA PAREKH understand my current condition and have read and understand these discharge instructions. I have received a written copy of the plan/instructions. If I have questions, I am aware that I should contact my doctor. Patient/Care Coordination Manager Signature: Date/Time: Relationship to Patient: Witness Name/Signature: Date/Time: [facility] 07-09-[address] Procedure Record Summary Primary Physician: KIMBERLY MILES DO Finalized Date/Time: 07/09/22 13:43:26 Pt. Name: ROSAVANESSA D.O.B./Sex: 1970 Female Med Rec #: [id number] Physician: Financial #: [id number] Pt. Type: O Room/Bed: / Admit/Disch: 07/09/22 12:26:00 - Institution: Allergies identified in patient's electronic medical record at time of printing on 07/09/22 Entry 1 Entry 2 Substance Jardiance metFORMIN Reaction Type Allergy Allergy Last Modified By: Jennifer Nicolas LPN, Melissa LPN 03/17/20 10:44:36 03/17/20 10:44:36 Case Attendance- CT Entry 1 Entry 2 Entry 3 Case Attendee KIMBERLY MILES Hailey E RN Fuzer, Rad Tech Lynn M Role Performed Primary Surgeon Procedure Nurse Packager Details Time In 07/09/22 13:24:00 07/09/22 13:24:00 07/09/22 13:24:00 Time Out 07/09/22 13:25:00 07/09/22 13:41:00 07/09/22 13:41:00 Procedure/Preference CT Coronary Angiography CT Coronary Angiography CT Coronary Angiography Card W+W/O Contrast ( W+W/O Contrast ( W+W/O Contrast ( Last Modified By: Haily Hall RN, Hailey E RN Sabol, Hailey E RN 07/09/22 13:42:24 07/09/22 13:42:24 07/09/22 13:42:36 Radiology Procedures- CT Entry 1 Procedure/Preference CT Coronary Angiography Actual Procedure CT CORONARY ANGIOGRAPHY Card W+W/O Contrast (SN) W+W/O CONTRAST Primary Procedure Yes Primary Surgeon KIMBERLY MILES DO Anesthesia/Sedation None Type Additional Procedure Times Start 07/09/22 13:30:00 Stop 07/09/22 13:38:00 Specialty Service SN Radiology Procedure EBL 0 mL Last Modified By: Haily Hall RN 07/09/22 13:43:22 General Case Data- CT Entry [address] 1 Case Level None Wound Class None Specialty SN Radiology Procedure ASA Class None Diagnosis Preop Diagnosis Coronary artery Postop Same As Preop Yes disease, chest pain, shortness of breath Postop Diagnosis Coronary artery disease, chest pain, shortness of breath Last Modified By: Haily Hall RN 07/09/22 13:28:11 Medication Administration- CT Entry 1 Medication Sublingual Nitro Time Administered 07/09/22 13:35:00 Route of Admin Buccal Volume 0.4 mg VORB Administered by No Administered by: Haily Hall RN Physician? Last Modified By: Haily Hall RN 07/09/22 13:37:15 Procedure Case Times- CT Entry 1 Patient In Procedure Patient In OR 07/09/22 13:24:00 Patient Out of OR 07/09/22 13:41:00 Procedure Start/Stop Procedure Start Time 07/09/22 13:30:00 Procedure Stop Time 07/09/22 13:38:00 Last Modified By: Haily Hall RN 07/09/22 13:41:21 Allergy Information- CT Entry 1 Allergies Reviewed? Yes Allergies Reviewed Patient With Last Modified By: Haily Hall RN 07/09/22 13:24:52 Radiology Protocols/Time Out- CT Entry 1 Preprocedure Clinician Verifies Correct patient ID When Clinically Confirmation of correct using name & date Indicated side(s) and site(s), or MRN, Accurate Correct diagnostic and procedure, complete radiology tests Informed Consent available OR/Procedure Room/Bedside Time 07/09/22 13:26:00 Clinician Verifies Correct patient identity including EMR & records using name and date or medical record number, Accurate procedure consent form, Correct patient position, Necessary equipment is available When Applicable Confirmation correct side and site marked, Relevant images and results are properly labeled and appropriately displayed Instrument Sterility Procedure CT Coronary Angiography W+W/O Contrast ( Last Modified By: Haily Hall RN 07/09/22 13:26:28 Patient Positioning - CT Entry [address] Coronary Angiography Body Position OP Supine W+W/O Contrast ( Feet Uncrossed? Yes Pressure Points Yes Checked Last Modified By: Haily Hall RN 07/09/22 13:26:36 Radiology Procedure Plan - CT Entry 1 Radiology - Nursing Care Plan Outcome Statement The patient's value Outcome Statement The patient receives system, lifestyle, Cont. appropriate ethnicity, and culture medication(s), safely are considered, administered during the respected, and perioperative/invasive incorporated in the period., The patient is perioperative plan of free from signs and care., The patient is symptoms of injury free from signs and caused by extraneous symptoms of infection. objects (equipment, instrumentation, sponges, or sharps)., The patient is free from signs and symptoms of electrical injury. Radiology - Action Plan Action Plan - Patient's value system, Outcome Statement lifestyle, ethnicity, and culture are considered, respected, and incorporated in the perioperative plan of care., Patient is free from signs and symptoms of infection., Patient is free from signs and symptoms of injury related to positioning., Patient is free from signs and symptoms of chemical injury., Patient receives appropriate medication(s), safely administered during the perioperative period., Patient is free from signs and symptoms of injury caused by extraneous objects (equipment, instrumentation, sponges, or sharps). Ginner Haily Hall RN Completing Procedure Plan Last Modified By: Haily Hall RN 07/09/22 13:27:51 Radiology Lines and Procedures- CT Entry 1 Radiology Sedation Case Times Sedation Total Time 0 Radiology - Fluid/Drainage RAD - CT Guidewires, Cath... Radiology Urinary Catheter Radiology - CT Other Items Radiology Contrast Contrast Used? Yes Dose 66 mL Medication OMNIPAQUE 350 [id number]/PK Y-542 Radiology Procedure Site Last Modified By: Haily Hall RN 07/09/22 13:28:56 Transfer Post Procedure- CT Entry 1 RAD - Transport to Recovery Patient Transported IV Via Cart With Post-op Destination Receiving Transported By Haily Hall RN Post Procedure Time Out Double Verification Yes Date/Time Verified 07/09/22 13:27:00 of ID band on patient Completed Verfied ID Band on Haily Hall RN by Last Modified By: Haily Hall RN 07/09/22 13:29:08 Case Comments Finalized By: Haily Hall RN Document Signatures Signed By: Haily Hall RN 07/09/22 13:43 [facility] 05-08-2022 Evaluation + Plan note Future Scheduled TestsBasic Metabolic Panel 05/08/22Lipid Profile 07/24/22N-Terminal proBNP 02/08/22CT Coronary Calcium Score w/o Contrast 03/08/22 [facility] documented as of this encounter (statuses as of 05/29/2023) [facility] Future App[facility]ments Appointment Date:07/24/2022 04:00:00 PM Scheduled Provider: [facility] Appointment Type:CV OV Diagnostic Tests Pending * Creatinine 07/09/22 Future Scheduled Tests Laboratory* Basic Metabolic Panel 05/08/22 * N-Terminal proBNP 02/08/22 Radiology* CT Coronary Calcium Score w/o Contrast 03/08/22 [facility] Hospital course Narrative No data available for this section [facility] Hospital Discharge instructions No data available for this section [facility] Summary Purpose Family History No Family History Records FoundNo Family History Records FoundNo Family History Records FoundNo Family History Records FoundNo Family History Records FoundNo Family History Records FoundNo Family History Records FoundNo Family History Records FoundNo Family History Records FoundNo Family History Records FoundNo Family History Records FoundNo Family History Records FoundNo Family History Records Found Advance Directives No Advanced Directives Records FoundDocuments on File Type Date Recorded Patient Care Coordination Manager Expl anation Advance Directives and Manny delacruz Will 10/10/2020 10:05 AM Assessments Diagnosis Coronary artery disease invo lving [place] coronary artery of [place] heart without angina pectoris - Primary Paroxysmal atrial fibrillati on (HCC) Atrial fibrillation Essential hypertension Unspecified essential hypertension Pure hypercholesterolemia Diagnosis Acute bronchitis, unspecified organism- Primary Discharge Instructions * Attachments The following attachments cannot be sent through Care Everywhere. * Bronchitis (Kazakh) documented in this encounter Additional Source Comments INFORMATION SOURCE (unrecogn ized section and content) DATE CREATED AUTHOR AUTHOR'S ORGANIZ ATION 05/13/2018 [facility] DATE CREATED AUTHOR AUTHOR'S ORGANIZ ATION 05/20/2018 [facility] DATE CREATED AUTHOR AUTHOR'S ORGANIZ ATION 10/15/2020 [facility] DATE CREATED AUTHOR AUTHOR'S ORGANIZ ATION 09/01/[address] [facility] DATE CREATED AUTHOR AUTHOR'S ORGANIZ ATION [facility]/10[facility]2022 [facility] DATE CREATED AUTHOR AUTHOR'S ORGANIZ ATION 09/28/2022 [facility] DATE CREATED AUTHOR AUTHOR'S ORGANIZ ATION 11/20/2022 [facility] DATE CREATED AUTHOR AUTHOR'S ORGANIZ ATION 11/26/2022 [facility] DATE CREATED AUTHOR AUTHOR'S ORGANIZ ATION 01/05/2023 [facility] DATE CREATED AUTHOR AUTHOR'S ORGANIZ ATION 01/15/2023 [facility] ([place] DATE CREATED AUTHOR AUTHOR'S ORGANIZ ATION 06/09/2023 [facility] DATE CREATED AUTHOR AUTHOR'S ORGANIZ ATION 08/25/2023 [facility] Reason for Visit (unrecogniz ed section and content) Reason Comments Medication Refill Norma Bergeron RN - 10/10/2020 10:11 AM Surya Merlos MD - 10/10/2020 9:56 AM Norma Velasquez RN - 10/10/2020 9:21 AM EST ED Notes (unrecognized secti on and content) Verbalized understanding of discharge instructions ED PROVIDER NOTE [facility] NAME: Vanessa Parekh AGE: 50 y.o. : 1970 VISIT DATE: 10/10/2020 CSN: [id number] PCP: Mamie Barlow CNP Chief Complaint Patient presents with Cough Sore Throat Fever Rash Patient presents with cough earache last 2 days. Some chest congestion. No vomiting or diarrhea. No chest pain. 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 Also complains of some left earache. No vomiting Past Medical History: Diagnosis Date Coronary artery disease 2011 50% LAD Hyperlipidemia Hypertension Obesity STEPHANIE on CPAP Psoriasis Past Surgical History: Procedure Laterality Date CARDIAC CATHETERIZATION 2011 SECTION HYSTERECTOMY TONSILLECTOMY AND ADENOIDECTOMY Family History Problem Relation Age of Onset Heart disease Mother open heart surgery Heart disease Father Diabetes Father Social History Socioeconomic History Marital status: Spouse name: Not on file Number of children: Not on file Years of education: Not on file Highest education level: Not on file Occupational History Not on file Social Needs Financial resource strain: Not on file Food insecurity Worry: Not on file Inability: Not on file Transportation needs Medical: Not on file Non-medical: Not on file Tobacco Use Smoking status: Current Every Day Smoker Packs/day: 0.50 Last attempt to quit: 04/23/2016 Years since quittin.4 Smokeless tobacco: Former User Quit date: 04/13/2016 Substance and Sexual Activity Alcohol use: No Alcohol/week: 0.0 standard drinks Drug use: No Sexual activity: Not on file Lifestyle Physical activity Days per week: Not on file Minutes per session: Not on file Stress: Not on file Relationships Social connections Talks on phone: Not on file Gets together: Not on file Attends yazidism service: Not on file Active member of club or organization: Not on file Attends meetings of clubs or organizations: Not on file Relationship status: Not on file Other Topics Concern Not on file Social History Narrative Not on file Previous Medications Medication Sig rivaroxaban (Xarelto) 20 mg Tab TK 1 T PO D atenolol (TENORMIN) 25 MG tablet Take 1 (one) tablet (25 mg total) by mouth daily. atorvastatin (LIPITOR) 40 MG tablet Take 1 (one) tablet (40 mg total) by mouth daily. diltiazem (CARDIZEM CD) 180 MG 24 hr capsule Take 1 (one) capsule (180 mg total) by mouth daily. TREMFYA 100 mg/mL Syrg Inject 100 mg as directed Every 2 months . venlafaxine (EFFEXOR-XR) 75 MG 24 hr capsule Take 75 mg by mouth daily . [DISCONTINUED] aspirin 81 MG EC tablet Take 81 mg by mouth daily. [DISCONTINUED] azithromycin (Z-LORI) 5 day dose pack Take 2 the first day, morning and evening, then one pill daily until all complete . Allergies Allergen Reactions Adhesive Rash OR Tape Review of Systems All other systems reviewed and are negative. Patient Vitals for the past 24 hrs: BP Temp Pulse Resp SpO2 Height Weight 10/10/20 0917 (!) 20 10/10/20 0915 (!) 140/80 99.2 F (37.3 C) (!) 105 98 % 4' 11 95.3 kg (210 lb) Physical Exam HENT: Right Ear: Tympanic membrane normal. Mouth/Throat: Mouth: Mucous membranes are moist. Neck: Musculoskeletal: Normal range of motion and neck supple. Cardiovascular: Rate and Rhythm: Normal rate and regular rhythm. Pulmonary: Effort: Pulmonary effort is normal. Breath sounds: Normal breath sounds. Skin: Capillary Refill: Capillary refill takes less than 2 seconds. Neurological: General: No focal deficit present. Mental Status: She is alert. Left tympanic erythema Laboratory & Radiographic Imaging (if done): Results for orders placed or performed during the hospital encounter of 10/10/20 POC Covid-19, Molecular Result Value Ref Range SARS-CoV-2 Not Detected Not Detected No orders to display Procedures MDM Number of Diagnoses or Management Options Diagnosis management comments: Presentation is most consistent with bronchitis and patient is requesting antibiotics. Patient be discharged on Zithromax. . Clinical Impression: 1. Acute bronchitis, unspecified organism ED Disposition ED Disposition Condition Comment Discharge Stable Vanessa Parekh discharged to home/self care in stable condition. Follow-up Information Follow-up information has not been specified. Contact information for after-discharge care Follow-up information has not been specified. New Prescriptions azithromycin (ZITHROMAX) 250 MG tablet Take 1 (one) tablet (250 mg total) by mouth daily for 6 days . Discontinued Medications Disp Refills Start End aspirin 81 MG EC tablet 10/10/2020 Class: Historical Med Reason for Discontinue: Error Surya Bruce MD 10/10/20 1021 Arrives with rash on body Cough Ear pain None at present Loss of smell documented in this encounter Care Team (unrecognized sect ion and content) Care Team Personnel Name: CRISTY OWEN HEL[employer]UM [employer] WELDER[employer]SUPERVISING FILM OR VIDEOTAPE EDITOR Member Role: Primary Care Physician Address: Address: [address] [place] [address] [address] [place] [address]- Care Team Related Persons Name: SONAL PAREKH Address: Home [address] [place], [place] [id number] [place] Care Team Personnel Name: CRISTY OWEN [employer] WELDER-SUPERVISING FILM OR VIDEOTAPE EDITOR Member Role: Primary Care Physician Address: Address: [address] [place] [address] [place] [address] Care Team Related Persons Name: SONAL PAREKH Address: Home [address] [place], [place] [id number] [place] [address] Care Teams (unrecognized sec tion and content) Source Comments (unrecognize d section and content) In the event this informatio n is protected by the Federal Confidentiality of Alcohol and Drug Abuse Patient Records regulations: The Federal rules restrict any use of the information to criminally investigate or prosecute any alcohol or drug abuse patient.[facility] FOR RECORDS PERTAINING TO PATIENTS WHO ARE OR HAVE BEEN ENROLLED IN A CHEMICAL DEPENDENCY/SUBSTANCEABUSE PROGRAM, SOME INFORMATION MAY BE OMITTED. This clinical summary was aggregated from multiple sources. Caution should be exercised in using it in the provision of clinical care. This summary normalizes information from multiple sources, and as a consequence, information in this document may materially change the coding, format and clinical context of patient data. In addition, data may be omitted in some cases. CLINICAL DECISIONS SHOULD BE BASED ON THE PRIMARY CLINICAL RECORDS. [employer] [facility]. provides no warranty or guarantee of the accuracy or completeness of information in this document.
--- NOTE | 2023-11-15 09:16 | PFT ---
INTRODUCTION: The patient is a 53-year-old female who presents for pulmonary function studies secondary to a diagnosis of dyspnea. Respiratory therapy reported good patient effort. Bronchodilators were used during testing. INTERPRETATION: Forced expiration spirometry demonstrates no evidence of a large airways obstructive ventilatory defect. There was no significant response to aerosolized bronchodilators. Spirograms are of good quality and plateau normally. Body plethysmography was performed and revealed lung volumes to be within normal limits. Diffusing capacity by single breath CO was also within normal limits. IMPRESSION: Grossly normal pulmonary function studies.
== END | disposition home or self-care (01) ==
LOC: PSN 07:01
PROVIDERS: PCP Nurse Practitioner Family; Referring Provider Internal Medicine Critical Care Medicine; Visit Provider Internal Medicine Critical Care Medicine
DX: R59.0 Localized enlarged lymph nodes (principal); R06.00 Dyspnea, unspecified
CPT/HCPCS: 94060; 94726; 94729

== ENCOUNTER → 2023-12-03 | Outpatient (CLI) | payer BC, SELFPAY ==
--- OUTSIDE RECORDS SUMMARY | 2023-12-03 07:49 | XMS RPT_ITS | CCD ---
Author Name Unknown Address [address] [place] [address] Organization [facility] Care Team Providers Care Histology Aide Name Role Phone Camara, [place] L Unavailable Unavailable Camara, [place] L Unavailable Unavailable Camara, [place] L Unavailable Unavailable Camara, [place] L Unavailable Unavailable SONAL CURZ Unavailable Unavailable DEHASS ELDER, MAMIE Unavailable Unavailable KEYANNASRINIVAS PRINCE Unavailable Unavailab le DEHASS ELDER, MAMIE Unavailable Unavailable SRINIVAS BRICEÑO Unavailable Unavailab le DEHASS ELDER, MAMIE Unavailable Unavailable Dehass Elder, Mamie Unavailable LILLIAN KELLOGG Unavailable Unavailable SELF, SELF Unavailable Unavailable Unavailable Primary Care Provider UnavailMamie Benjamin Primary Care Provider DELISSET ALCALA, MAMIE Primary Care Unavailable SURYA BRUCE Attending [...] Care Unava ilable Unavailable Primary Care Provider UnavailMYRTLE Muñoz M.D. Consulting Unavailab le ELIANA ALCANTAR Admitting Unavailable ELIANA ALCANTAR Attending Unavailable CRISTY OWEN CNP Referring Unavailable JOHN CLAYTON DO Admitting Unavailable JOHN CLAYTON DO Primary Care Unavailable JOHN CLAYTON DO Attending Unavailable CRISTY OWEN CNP Consulting Unavailable PROVIDER, UNKNOWN Consulting Unavailable PROVIDER, UNKNOWN Consulting Unavailable CRISTY OWEN CNP Attending Unavailable CRISTY OWEN CNP Admitting Unavailable CRISTY OWEN CNP Primary Care Unavailable CRISTY OWEN CNP Consulting Unavailable PROVIDER, UNKNOWN Consulting Unavailable PROVIDER, UNKNOWN Consulting Unavailable Allergies Allergy Classification Reported Allergen(s) Allergy Type Date of Onset Reaction(s) Facility (5 sources) Adhesive agent; Translations: [ADHESIVE] Propensity to adverse reactions to drug (disorder) 12-22-19 [facility] (2 sources) empagliflozin; Translations: [empagliflozin] Drug Allergy yeast infection [facility] (2 sources) metFORMIN; Translations: [metformin] Drug Allergy severe diarrhea, yeast infection [facility] [place] (1 source) Adhesive Tape Propensity to adverse reactions to substance 12-22-19 [facility] (1 source) Adhesive Tape; Translations: [TAPE] Propensity to adverse reactions (disorder) [facility] Repository Medications Current Medications Medication Drug Class(es) Dates Sig (Normalized) Sig (Original) Alcohol Swabs (1 source) Start: 10-01-2019 Alcohol Swabs See Instructions, 1 box, # 1 EA, 0 Refill(s), Pharmacy: [id number], Uncontrolled diabetes mellitus Start Date: 10/01/19 Status: Ordered atorvastatin 80 mg oral tablet (6 sources) HMG-CoA Reductase Inhibitor Start: 07-24-2022 End: 10-17-2023 atorvastatin 80 mg oral tablet Dose : 80 mg = 1 tab(s), Oral, qDay, # 90 tab(s), 4 Refill(s), Pharmacy: [facility], 149, cm, 07/24/22 15:57:00 EDT, [...] Date Time Vital Sign Value Performing Clinician Alejandra heath 07-28-2022 19:27-0400 Body temperature 98.42 [degF] SPENCER FLETCHER MD [facility] 07-28-2022 19:27-0400 Body weight 82.5 kg SPENCER FLETCHER MD [facility] 07-28-2022 19:27-0400 Diastolic blood pressure 105 mm[Hg] SPENCER FLETCHER MD [facility] 07-28-2022 19:27-0400 Heart rate 79 /min SPENCER FLETCHER MD [facility] 07-28-2022 19:27-0400 Respiratory rate 20 /min SPENCER FLETCHER MD [facility] 07-28-2022 19:27-0400 Systolic blood pressure 165 mm[Hg] SPENCER FLETCHER MD [facility] 07-09-2022 13:54-0400 Diastolic blood pressure 56 mm[Hg] BRANDY LEO MD [address] 07-09-2022 13:54-0400 Heart rate 53 /min BRANDY LEO MD [address] 07-09-2022 13:54-0400 Respiratory rate 16 /min BRANDY LEO MD [address] [place] [address] 07-09-2022 13:54-0400 Systolic blood pressure 97 mm[Hg] BRANDY LEO MD [address] [place] [address] 07-09-2022 13:40-0400 Diastolic blood pressure 54 mm[Hg] BRANDY LEO MD [address] [place] [address] 07-09-2022 13:40-0400 Mean blood pressure 66 mm[Hg] BRANDY LEO MD [address] [place] [address] 07-09-2022 13:40-0400 Systolic blood pressure 90 mm[Hg] BRANDY LEO MD [address] [place] [address] 07-09-2022 13:34-0400 Diastolic blood pressure 60 mm[Hg] BRANDY LEO MD [address] [place] [address] 07-09-2022 13:34-0400 Heart rate 54 /min BRANDY LEO MD [address] [place] [address] 07-09-2022 13:34-0400 Mean blood pressure 71 mm[Hg] BRANDY LEO MD [address] [place] [address] 07-09-2022 13:34-0400 Systolic blood pressure 94 mm[Hg] BRANDY LEO MD [address] [place] [address] 07-09-2022 13:29-0400 Heart rate 51 /min BRANDY LEO MD [address] [place] [address] 07-09-2022 13:29-0400 Mean blood pressure 68 mm[Hg] BRANDY LEO MD [address] [place] [address] 07-09-2022 12:48-0400 Body temperature 98.6 [degF] BRANDY LEO MD [address] [place] [address] 07-09-2022 12:48-0400 Respiratory rate 18 /min BRANDY LEO MD [address] [place] [address] 07-06-2022 14:55-0400 Body height 149.9 cm BRANDY LEO MD [address] [place] [address] 07-06-2022 14:55-0400 Body weight 79.2 kg BRANDY LEO MD [address] [place] [address] 07-06-2022 14:55-0400 Body weight 35.25 kg/m2 BRANDY LEO MD [address] [place] [address] 10-10-2020 09:17-0500 Respiratory Rate 20 /min [facility] 10-10-2020 09:15-0500 BMI (Body Mass Index) 42.41 kg/m2 [facility] 10-10-2020 09:15-0500 Body Temperature 99.19 [degF] [facility] 10-10-2020 09:15-0500 Body weight 95.[address] [facility] 10-10-2020 09:15-0500 BP Diastolic 80 mm[Hg] [facility] 10-10-2020 09:15-0500 BP Systolic 140 mm[Hg] [facility] 10-10-2020 09:15-0500 Height 149.[address] [facility] 10-10-2020 09:15-0500 Pulse (Heart Rate) 105 /min [facility] 10-10-2020 09:15-0500 Pulse Oximetry 98 % Surya Bruce [facility] 05-07-2018 15:12-0400 BMI (Body Mass Index) 44.23 kg/m2 Srinivas Briceño [facility] 05-07-2018 15:12-0400 BP Diastolic 53 mm[Hg] Srinivas Briceño [facility] 05-07-2018 15:12-0400 BP Systolic 105 mm[Hg] Srinivas Briceño [facility] 05-07-2018 15:12-0400 Height 149.9 cm Srinivas Keyanna [facility] 05-07-2018 15:12-0400 Pulse (Heart Rate) 75 /min Srinivas Keyanna [facility] 05-07-2018 15:12-0400 Pulse Oximetry 92 % Srinivas Briceño [facility] 05-07-2018 15:120400 Weight 99.34 kg Srinivas Briceño [facility] Encounters Encounter Date Encounter Type Care Provider Facility Start: 11-28-2023 End: 11-28-2023 ambulatory CRISTY MEI [facility] Start: 08-02-2023 End: 08-03-2023 Emergency department patient visit CRISTY MEI [facility] Start: 05-27-2023 End: 05-28-2023 [facility] Start: 05-27-2023 End: 05-28-2023 Subsequent hospital visit by physician Provider [facility] Procedures Date Procedure Procedure Detail Performing Clinician Start: 05-28-2023 CBC + DIFF Provider [facility] Start: 05-28-2023 Comprehensive metabolic 2000 panel - Serum or Plasma Provider [facility] Start: 05-27-2023 Ct abdomen & pelvis w/contrast material Provider [facility] Start: 05-27-2023 BASIC METABOLIC PNL Stalin Pennie Diop DO Work Phone: Start: 05-27-2023 CBC + DIFF Stalin Pennie Diop DO Work Phone: Start: 05-27-2023 HEPATIC FUNCTION PNL Stalin B Diop DO Work Phone: Start: 05-27-2023 LIPASE BLD Stalin B Diop DO Work Phone: Start: 05-27-2023 URINALYSIS, DIPSTICK ONLY Stalin B Diop DO Work Phone: Start: 02-01-2021 Gastric sleeve BRANDY LEO MD Start: 10-10-2020 POC COVID-19, MOLECULAR [facility] Start: 10-01-2019 Cardiac catheterization BRANDY LEO MD Start: 02-02-2014 Mammography Provider [facility] Start: 06-05-2013 Cardiac catheterization Cardiac catheterization( Confirmed ) BRANDY LEO MD Partial hysterectomy BRANDY LEO MD Sling operation stre ss incontinence BRANDY LEO MD Plan of Treatment Date Care Activity Detail Author Start: 05-28-2026 DIABETES SCREEN DIABETES SCREEN [facility] Start: 07-19-2023 Influenza vaccination INFLUENZA (#1) [facility] Start: 07-19-2022 Influenza vaccination Sequential Influenza Vaccine (#1) [facility] Start: 2021 Administration of herpes zoster vaccine Zoster Vaccines (1 of 2) [facility] Start: 2021 Influenza vaccination LUNG CANCER SCREENING [facility] Start: 2021 Screening for malignant neoplasm of colon Flexible sigmoidoscopy [facility] Start: 02-01-2021 LIPID SCREEN LIPID SCREEN [facility] Start: 07-19-2020 Influenza vaccination given Sequential Influenza Vaccine (#1) [facility] Start: 10-06-2018 HPV TESTING HPV TESTING [facility] Start: 10-06-2018 PAP TESTING PAP TESTING [facility] Start: 07-19-2018 Influenza vaccination [facility] Start: 2016 COLOGUARD (FIT-DNA) COLOGUARD (FIT-DNA) [facility] Start: 2016 Colonoscopy COLONOSCOPY [facility] Start: 2016 COLORECTAL CANCER SCREENING COLORECTAL CANCER SCREENING [facility] Start: [address] COLONOGRAPHY [facility] Start: 2016 FECAL OCCULT BLOOD FECAL OCCULT BLOOD [facility] Start: 2016 SIGMOIDOSCOPY SIGMOIDOSCOPY [facility] Start: 02-02-2015 Mammography MAMMOGRAM [facility] Start: 2011 Fasting lipid profile LIPID SCREENING [facility] Start: 2011 Protein mass conc MAMMOGRAM SCREENING DISCUSSION [facility] Start: 2011 Screening for malignant neoplasm of breast Mammogram [facility] Start: 1992 Screening for malignant neoplasm of cervix PAP SMEAR DISCUSSION [facility] Start: 1990 SHINGRIX VACCINE (1 of 2) SHINGRIX VACCINE (1 of 2) [facility] Start: 1990 Third diphtheria, tetanus and acellular pertussis (DTaP) vaccination TDAP (ADULT) [facility] Start: 1990 Urine microalbumin profile DTAP,TDAP,TD (1 - Tdap) [facility] Start: 1989 Hepatitis C antibody, confirmatory test Hepatitis C Screening [facility] Start: 1989 Hepatitis C screening Hepatitis C Screening [facility] Start: 1989 HEPATITIS C SCREENING HEPATITIS C SCREENING [facility] Start: 1989 HIV SCREENING HIV SCREENING [facility] Start: 1989 Tetanus vaccination TETANUS [facility] Start: 1986 HIV screening HIV Screening [facility] Start: 1984 HIV screening HIV SCREENING DISCUSSION [facility] Start: 1983 Adolescent depression screening assessment Depression Screening (PHQ9) [facility] Start: 1983 Depression screening using PHQ-9 (Patient Health Questionnaire 9) score Depression Screening (PHQ-2/9) [facility] Start: 1977 PNEUMOCOCCAL (1 - PCV) PNEUMOCOCCAL (1 - PCV) [facility] Start: 1977 Pneumococcal Vaccine: Ped or At-Risk (1 - PCV) Pneumococcal Vaccine: Ped or At-Risk (1 - PCV) [facility] Start: 1974 History and physical examination, annual for health maintenance Wellness Visit [facility] Start: 1971 COVID-19 Vaccine (#1) COVID-19 Vaccine (#1) [facility] Start: 1971 HEPATITIS B (1 of 3 - 3-dose series) HEPATITIS B (1 of 3 - 3-dose series) [facility] Start: 1971 Screening for malignant neoplasm of cervix PAP SMEAR [facility] Start: 1971 Screening for malignant neoplasm of colon [facility] Start: 1971 Screening mammography Mammogram [facility] Start: 1971 Tetanus vaccination [facility] Payers Date Payer Category Payer Self-pay 2022 Unknown [id number] 2021 Unknown [id number] 2017 Unknown EARL ELLIOTT HM O PPO POS xxxxxxxxxxxx 2017-Present xxxxxxxxxxxx [id number] 2016 [facility] [id number] 2016 Unknown [id number] 1971 Unknown [id number] 1971 Unknown [id number] 627 1971 Unknown [id number] 627 1971 Unknown [id number] 627 1971 Unknown [id number] 627 1971 Unknown [id number] 627 1971 Unknown [id number] 651 1971 Unknown [id number] 651 Unknown [id number] 283 Social History Date Type Detail Facility Start: 10-20-2015 End: 05-07-2018 Tobacco smoking status SDIS Current every day smoker [facility] Start: 05-07-2018 End: 10-26-2020 Cigarettes smoked current (pack per day) - Reported [facility] Start: 1970 Sex Assigned At [facility] file [facility] End: 04-23-2016 History of tobacco use Smoker [facility] Start: 05-01-2016 End: 10-10-2020 Tobacco use and exposure Former user [facility] End: 04-13-2016 History of tobacco use User of smokeless tobacco [facility] Start: 10-10-2020 End: 07-04-2022 Alcohol intake Current non-drinker of alcohol (finding) [facility] Start: 09-10-2020 End: 10-10-2020 Exposure to SARS-CoV-2 (event) Not sure [facility] Start: 02-08-2022 Tobacco smoking status Heavy t obacco smoker (finding) [facility] Sex Assigned At Female [facility] Start: 05-01-2016 [facility] End: 04-23-2016 History of tobacco use Cigarette Smoker [facility] Start: 04-27-2016 Tobacco Comment recently quit [facility] Start: 10-20-2015 Tobacco use and exposure Smoke less tobacco non-user [facility] Start: 10-26-2020 End: 07-04-2022 Tobacco use panel [facility] National Score (1-10 0), lower number is lower risk Not on file [facility] Start: 10-20-2015 Tobacco Comment [address] [facility] Medical Equipment Procedure Code Equipment Code Equipment Origin al Text Equipment Identifier Dates See Instructions , #200 Re: BID testing., # 1 EA, 0 Refill(s), Pharmacy: [facility] #[id number], Uncontrolled diabetes mellitus Start: 10-01-2019 See Instructions , #200 Re: BID testing., # 1 EA, 1 Refill(s), Pharmacy: [facility] #[id number], Uncontrolled diabetes mellitus Start: 10-01-2019 Functional Status Date Assessment Result Facility 07-09-2022 Functional Status Independent [facility] 07-09-2022 Functional Status Standard Safet y ID band on, Allergy Band on [facility] 07-06-2022 Functional Status Sensory Deficits None [facility] Mental Status Date Assessment Result Facility 07-09-2022 Mental Status Orientation Oriented x 4 [facility] 07-09-2022 Mental Status [facility] Clinical Notes 12-05-2006 to 05-28-2023 Robert Serrano MD - 05/28/2023 2:45 PM EDTCchs, Provider - 05/27/2023 4:39 PM EDTInstructionsLaboratoryRadiology Note Date & Type Note Facility 05-28-2023 History of Present illness [place]arr[place] [address] QUICK NOTE Patient: VANESSA PAREKH ROBERT SERRANO M.D. [id number] [age] F Status: DIS [place] 2SWEST 2934-A Report Date & Time: 05/28/23 1523 Change Of Status Additional Notes dictation number [id number] <Electronically signed by ROBERT SERRANO M.D.> 05/28/23 1524 ROBERT SERRANO M.D. << Signature on File>> Reported By: ROBERT SERRANO M.D. Signed By: ROBERT SERRANO M.D. Tests performed at: [address] [address] [place] [address] QUICK NOTE Patient: VANESSA PAREKH ELIANA ALCANTAR M.D. [id number] [age] F Status: REG ER ED Report Date & Time: 05/27/23 1639 Change Of Status Additional Notes [id number] <Electronically signed by ELIANA ALCANTAR M.D.> 05/27/23 1641 ELIANA ALCANTAR M.D. << Signature on File>> Reported By: ELIANA ALCANTAR M.D. Signed By: ELIANA ALCANTAR M.D. Tests performed at: [place] [address] documented in this encounter [facility] 05-28-2023 Hospital Discharge instructions Robert Serrano MD - 05/28/2023 2:[place] [address] HEALTH INFORMATION MANAGEMENT IP DISCHARGE INSTRUCTIONS Patient: VANESSA PAREKH ROBERT SERRANO M.D. [id number] F Status: ADM [place] 2SWEST [...] COMMENTS OR SUGGESTIONS. THANK YOU FOR CHOOSING [facility]. << Signature on File>> Reported By: ROBERT SERRANO M.D. Signed By: ROBERT SERRANO M.D. Tests performed at: [address] [address] documented in this encounter [facility] 07-28-2022 Note ORIGINAL EXAMINATION: ONE XRAY [...] Sign Date: 07/28/2022 8:26:26 PM Ordering Provider: [facility] 07-28-2022 Note ORIGINAL EXAMINATION: ONE XRAY [...] Sign Date: 07/28/2022 8:26:26 PM Ordering Provider: [facility] 07-09-2022 Hospital Discharge instructions Patient Education 07/09/2022 13:49:23 Radiology- CT Coronary Angiogram (CUSTOM) [facility] Coronary CT Angiogram (Coronary CTA or Cardiac CTA) Discharge Instructions [facility] [address] [place] [address] Today, you had a Coronary CT Angiogram. [...] Department: For the first 24 hours call [phone] After 24 hours, contact the physician who [...] Up Care 05/10/2022 14:04:22 With:BRANDY LEO Address: [address] [place] [address] [address] [facility] [place] [address]- [phone] Business (1) When: Unknown Comments:Follow-up as scheduled [facility] 07-09-2022 Note Haily Hall RN: SIGN, AUTHOR, PERFORM Event Display: CT Procedure Record Authored Date: CT Procedure Record Summary Primary Physician: KIMBERLY MILES DO Finalized Date/Time: 07/09/22 13:43:26 Pt. Name: VANESSA PAREKH /Sex: 1970 Female Med Rec #: [id number] Physician: Financial #: [id number] Pt. Type: O Room/Bed: / Admit/Disch: 07/09/22 12:26:00 - Institution: Allergies identified in patient's electronic medical record at time of printing on 07/09/22 Entry 1 Entry 2 Substance Jardiance metFORMIN Reaction Type Allergy Allergy Last Modified By: Jennifer Nicolas LPN, Melissa LPN 03/17/20 10:44:36 03/17/20 10:44:36 Case Attendance- CT Entry 1 Entry 2 Entry 3 Case Attendee MILES, KIMBERLY P DO Isabel, Haily E RN Fuzer, Clinical Safety Manager Leah M Role Performed Primary Surgeon Procedure Nurse Material Expeditor Details Time In 07/09/22 13:24:00 07/09/22 13:24:00 [...] extraneous objects (equipment, instrumentation, sponges, or sharps). Histology Aide Haily Hall RN Completing Procedure Plan Last Modified By: Haily Hall RN 07/09/22 13:27:51 Radiology Lines and Procedures- CT Entry 1 Radiology Sedation Case Times Sedation Total Time 0 Radiology - Fluid/Drainage RAD - CT Guidewires, Cath... Radiology Urinary Catheter Radiology - CT Other Items Radiology Contrast Contrast Used? Yes Dose 66 mL Medication OMNIPAQUE 350 [id number] Radiology Procedure Site Last Modified By: [...] Signed By: Haily Hall RN 07/09/22 13:43 [facility] 07-09-2022 Summary of episode note Discharge Instructions Thank you for allowing [facility] to assist you with your healthcare needs. The following is important discharge information regarding your hospital visit. Your Care Team CRISTY OWEN What to do next Scheduled Follow-Up Appointments Appointment Type When Where Contact InformationCV OV 07/24/2022 04:00 PM EDT [facility] Follow Up with BRANDY LEO When Why: Follow-up as scheduled Where: [address] [place] [address] [address] [facility] [place] [phone] Business (1) Allergies Jardiance (yeast infection, Yeast [...] medication providers or retail pharmacies. Education Materials [facility] Coronary CT Angiogram (Coronary CTA or Cardiac CTA) Discharge Instructions [facility] [address] [place] [address] Today, you had a Coronary CT Angiogram. [...] Department: For the first 24 hours call [phone] After 24 hours, contact the physician who [...] to receive it can visit one of [facility] vaccine clinics. There are many vaccine clinic locations within the [facility]. For locations and available times, please visit [email or web address] It is important to note that some COVID mobile vaccine clinics are held outdoors and may be canceled in rainy or stormy conditions. To learn more about pediatric vaccinations (ages 5-11), we invite you to visit the [facility] webpage. [email or web address] To learn more about the COVID-19 vaccine, we invite you to visit the [facility] website for a list of frequently asked questions. [email or web address] requently_[email or web address]-Questions.[email or web address] [facility] Patient Portal Access Instructions: Stay connected with your healthcare team and access your personal medical information anytime with the [facility] Patient Portal.If you would like a full copy of your medical records, please contact the [facility] Medical Records Department, Saturday through Saturday between 8a.m. and 4:30p.m. Please follow the directions below to access the portal: 1.Access the email account you provided upon registration to the [facility].2.Look for an invitation email from [facility].3.Open the email and access the invitation link: Accept Invitation to [employer]4.Fill in the required jimenez to create your account. Sign into [email or web address] with your username and password that you [...] you will allow to register on the [employer] Patient Portal for access to your information. You can also access the [employer] Patient Portal on the [employer]. Simply click on Health Records under Health Data and then click on the [employer] logo. HOW TO SAFELY DISPOSE OF PRESCRIPTION [...] Call your local pharmacy or go to [email or web address] to find one close to you.3.Make use of household items: Use cat litter or old coffee grounds to dispose medications if other options are not available. Mix your drugs with these household products, seal them in an airtight container and throw it into the garbage. Call [facility]: [phone] to be sure your drugs can be [...] aware that I should contact my doctor. Patient/Tele Rn Signature: Date/Time: Relationship to Patient: Witness Name/Signature: Date/Time: [facility] 07-09-[address] Procedure Record Summary Primary Physician: KIMBERLY MILES DO Finalized Date/Time: 07/09/22 13:43:26 Pt. Name: VANESSA PAREKH/Sex: 1970 Female Med Rec #: [id number] Physician: Financial #: [id number] Pt. Type: O Room/Bed: / Admit/Disch: 07/09/22 12:26:00 - Institution: Allergies identified in patient's electronic medical record at time of printing on 07/09/22 Entry 1 Entry 2 Substance Jardiance metFORMIN Reaction Type Allergy Allergy Last Modified By: Jennifer Nicolas LPN, Melissa LPN 03/17/20 10:44:36 03/17/20 10:44:36 Case Attendance- CT Entry 1 Entry 2 Entry 3 Case Attendee KIMBERLY MILES DO Haily Hall RN, Rad Tech Lynn M Role Performed Primary Surgeon Procedure Nurse Material Expeditor Details Time In 07/09/22 13:24:00 07/09/22 13:24:00 [...] extraneous objects (equipment, instrumentation, sponges, or sharps). Histology Aide Haily Hall RN Completing Procedure Plan Last Modified By: Haily Hall RN 07/09/22 13:27:51 Radiology Lines and Procedures- CT Entry 1 Radiology Sedation Case Times Sedation Total Time 0 Radiology - Fluid/Drainage RAD - CT Guidewires, Cath... Radiology Urinary Catheter Radiology - CT Other Items Radiology Contrast Contrast Used? Yes Dose 66 mL Medication OMNIPAQUE 350 [id number] Radiology Procedure Site Last Modified By: [...] Hall RN Document Signatures Signed By: Haily aHll RN 07/09/22 13:43 [facility] 05-08-2022 Evaluation + Plan note Future Scheduled TestsBasic Metabolic Panel 05/08/22Lipid Profile 07/24/22N-Terminal proBNP 02/08/22CT Coronary Calcium Score w/o Contrast 03/08/22 [facility] documented as of this encounter (statuses as of 05/29/2023) [facility]ments Appointment Date:07/24/2022 04:00:00 PM Scheduled Provider: Location:[facility] Appointment Type:[facility] Diagnostic Tests Pending * Creatinine 07/09/22 Future Scheduled Tests Laboratory* Basic Metabolic Panel 05/08/22 * N-Terminal proBNP 02/08/22 Radiology* CT Coronary Calcium Score w/o Contrast 03/08/22 [facility] Hospital course Narrative No data available for this section [facility] Hospital Discharge instructions No data available for this section [facility] Summary Purpose Family History No Family History [...] FoundDocuments on File Type Date Recorded Patient Tele Rn Expl anation Advance Directives and Livin g Will 10/10/2020 10:05 AM Assessments Diagnosis Coronary artery disease invo lving pamunkey coronary artery of pamunkey heart without angina pectoris - Primary Paroxysmal atrial fibrillati on (HCC) Atrial fibrillation Essential hypertension Unspecified essential hypertension Pure hypercholesterolemia Diagnosis Acute bronchitis, unspecified organism- Primary Discharge Instructions * Attachments The following attachments cannot be sent through Care Everywhere. * Bronchitis ([place]) documented in this encounter Additional Source Comments INFORMATION SOURCE (unrecogn ized section and content) DATE CREATED AUTHOR AUTHOR'S ORGANIZ ATION 05/13/2018 [facility] DATE CREATED AUTHOR AUTHOR'S ORGANIZ ATION 05/20/2018 [facility] DATE CREATED AUTHOR AUTHOR'S ORGANIZ ATION 10/15/2020 [facility] DATE CREATED AUTHOR AUTHOR'S ORGANIZ ATION 09/01/2021 [facility] DATE CREATED AUTHOR AUTHOR'S ORGANIZ ATION 04/10/2022 [facility] DATE CREATED AUTHOR AUTHOR'S ORGANIZ ATION 09/28/2022 [facility] DATE CREATED AUTHOR AUTHOR'S ORGANIZ ATION 11/20/2022 [facility] DATE CREATED AUTHOR AUTHOR'S ORGANIZ ATION 11/26/2022 [facility] DATE CREATED AUTHOR AUTHOR'S ORGANIZ ATION 01/15/2023 [facility] DATE CREATED AUTHOR AUTHOR'S ORGANIZ ATION 06/09/2023 [facility] DATE CREATED AUTHOR AUTHOR'S ORGANIZ ATION 11/30/2023 [facility] DATE CREATED AUTHOR AUTHOR'S ORGANIZ ATION 11/30/2023 [facility] Reason for Visit (unrecogniz ed section and content) Reason Comments Medication Refill Roy, Norma L, RN - 10/10/2020 10:11 AM Surya Merlos MD - 10/10/2020 9:56 AM Norma Velasquez RN - 10/10/2020 9:21 AM EST ED Notes (unrecognized secti on and content) Verbalized understanding of discharge instructions ED PROVIDER NOTE [facility] EMERGENCY [facility] NAME: Vanessa Parekh AGE: 50 y.o. : 1970 VISIT DATE: 10/10/2020 CSN: [id number] PCP: Mamie Barlow CNP Chief Complaint Patient [...] Surgical History: Procedure Laterality Date CARDIAC CATHETERIZATION 2012 SECTION HYSTERECTOMY TONSILLECTOMY AND ADENOIDECTOMY Family History [...] file Gets together: Not on file Attends bahai service: Not on file Active member of [...] content) Care Team Personnel Name: CRISTY OWEN APRN-DRAGLINE ENGINEER Member Role: Primary Care Physician Address: Address: [address] [place] [address] [place] [address]- Care Team Related Persons Name: SONAL PAREKH Address: Home [address] [place], [place] [id number] Care Team Personnel Name: CRISTY OWEN EXCELSIOR CUTTER-DRAGLINE ENGINEER Member Role: Primary Care Physician Address: Address: [address] [place] [address] [address] [place] [address]- Care Team Related Persons Name: SONAL PAREKH Address: Home [address] [place] [phone] Care Teams (unrecognized sec tion and content) Source Comments (unrecognize d section and content) In the event this informatio n is protected by the Federal Confidentiality of Alcohol and Drug Abuse Patient Records regulations: The Federal rules restrict any use of the information to criminally investigate or prosecute any alcohol or drug abuse patient.[facility] FOR RECORDS PERTAINING TO PATIENTS WHO ARE [...] BE BASED ON THE PRIMARY CLINICAL RECORDS. [facility]. provides no warranty or guarantee of the accuracy or completeness of information in this document.
--- NOTE | 2023-12-03 08:05 | CT_ITS ---
HISTORY: follow up mediastinal lymphadenopathy, raspy voice x 1 year. TECHNIQUE: CT of the chest was performed after the intravenous administration of 100 mL Isovue 300. Coronal and sagittal reformatted images. Individualized dose optimization techniques were used for this CT. 874 images. COMPARISON: 03/26/2019. FINDINGS: CENTRAL AIRWAYS: Patent. LUNGS: Minimal linear lingular scarring unchanged. PLEURA: No pneumothorax or significant pleural effusion. HEART/PERICARDIUM: Heart within normal limits in size with mitral valvular and coronary artery calcification. No pericardial effusion. AORTA/VESSELS: No thoracic aortic aneurysm or dissection flap. Mild atherosclerosis. No large central filling defect identified in the pulmonary arteries. Chronic enlargement of the main pulmonary artery suggesting pulmonary hypertension. MEDIASTINUM/ROBERTO: 1.3 x 1.6 cm right paratracheal lymph node, previously 1.3 x 1.5 cm. Borderline to mildly enlarged right and left paratracheal and subcarinal lymph node similar to prior. OSSEOUS STRUCTURES: Intact. UPPER ABDOMEN: Mild hiatal hernia with interval gastric postoperative change. 2.5 cm right adrenal nodule again seen. CT/Chest WITH Contrast IMPRESSION: Stable mild mediastinal lymphadenopathy. No significant interval change in size of right adrenal nodule. Electronically Signed: Ynes Narvaez MD at 10:29 EST ,
[2023-12-03 08:14] LABS: CREATININE FINGERSTICK < 1.0 mg/dL (0.55-1.02); EGFR FINGERSTICK > 60.0000 mL/min (>60)
== END | disposition home or self-care (01) ==
LOC: CT 07:33
PROVIDERS: PCP Nurse Practitioner Family; Referring Provider Internal Medicine Critical Care Medicine; Visit Provider Internal Medicine Critical Care Medicine
DX: R06.00 Dyspnea, unspecified (principal); R59.0 Localized enlarged lymph nodes
CPT/HCPCS: 71260; Q9967

== ENCOUNTER → 2024-11-05 | Outpatient (CLI) | payer BC, SELFPAY ==
[2024-11-05 09:37] LABS: Absolute Lymphocyte Count 1.86 X10^3/uL (0.83-4.51); Absolute Neutrophil Count 3.5 X10^3/uL (2.0-7.7); Basophil# 0.03 X10^3/uL; Basophil% 0.5 % (0-1); Eosinophil# 0.09 X10^3/uL; Eosinophils% 1.5 % (0-5); Hemoglobin 13.1 g/dL (12.0-15.0); Lymphocyte # 1.86 X10^3/ul (0.83-4.51); Lymphocyte % 31.5 % (19-41); Mean Corp Hgb Conc 33.6 g/dL (32-36); Mean Corpuscular Hgb 31.7 pg (27.0-32.0); Mean Corpuscular Volume 94.4 fL (81-99); Monocyte# 0.46 X10^3/uL; Monocyte% 7.8 % (0-10); NRBC Flagged by Analyzer 0 % (0-5); Neutrophil # 3.46 X10^3/uL (2.7-7.7); Neutrophil % 58.5 % (47-70); Platelet Count 307 K/mm3 (150-450); RBC Distribution Width CV 12.7 % (11.6-14.6); RBC Distribution Width SD 43.9 fl (35.1-43.9); Red Blood Count 4.13 M/mm3 (4.2-5.4); White Blood Count 5.9 K/mm3 (4.4-11.0)
== END | disposition home or self-care (01) ==
PROVIDERS: PCP Nurse Practitioner Family; Referring Provider Student in an Organized Health Care Education/Training Program; Visit Provider Student in an Organized Health Care Education/Training Program
DX: R10.13 Epigastric pain (principal)
CPT/HCPCS: 36415; 85025

== ENCOUNTER 2024-11-09 06:42 | Day surgery (SDC) | payer BC, SELFPAY ==
--- NOTE | 2024-11-06 08:12 | PAT.ANE_ITS ---
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 When Was Last Pacemaker Check QUESTION #4 FULL TEXT: You/Your Family Experience fever (hyperthermia) with Anesthesia Last Oral Intake Last Oral intake: Last Oral Intake NPO since Meds taken in AM with sips of water? Meds patient instructed to take am of surgery PONV PONV - facsimile machine operator: PONV - facsimile machine operator Female Yes 11/05/24 14:35 HX of Motion Sickness No 11/05/24 14:35 HX of N/V After Surgery Yes 11/05/24 14:35 Non-Smoker Yes 11/05/24 14:35 Duration of Surgery greater No 11/05/24 14:35 than 60 minutes Number of Risk Factors 3 11/05/24 14:35 PONV Score Moderate Risk 11/05/24 14:35 Height & Weight Height & Weight: Anesthesia: Height & Weight Height 4 ft 11 in 02/05/24 07:39 Respiratory Assessment Respiratory Assessment - facsimile machine operator: Respiratory Tract Infection Hx - facsimile machine operator Hx Respiratory Tract Infection No 11/05/24 14:35 STOP Sleep Apnea STOP Sleep Apnea - facsimile machine operator: STOP Sleep Apnea - facsimile machine operator Hx Hypertension No 11/05/24 14:35 Hx Sleep Apnea Yes: PT STATES NO LONGER 11/05/24 14:35 SINCE WEIGHT LOSS CPAP No 11/05/24 14:35 BIPAP No 11/05/24 14:35 Do you snore loudly (louder than talking or can be heard Do you often feel tired/ fatigued/ sleepy during daytime? Has anyone observed you stop breathing during sleep? STOP Results Positive 11/05/24 14:35 QUESTION #5 FULL TEXT : Do you snore loudly (louder than talking or can be heard through closed doors)? Tobacco Use History Tobacco Use History - facsimile machine operator: Tobacco Use History - facsimile machine operator Tobacco Use Cigarettes 07/26/23 14:41 Smoking Status Former smoker 11/05/24 14:35 Hx Tobacco Use Yes 11/05/24 14:35 Years Smoking Packs Smoked per Day Smoking Cessation Date was Yes - quit smoking within 15 11/05/24 14:35 within the last 15 years years Hx Smoking Cessation Date 04/18/24 11/05/24 14:35 Hx Smoking Cessation Counseling Hematologic Medial History Hematologic Hx - facsimile machine operator: Hematologic Medical Hx - precision lens technician Hx of Blood Transfusion No 11/05/24 14:35 Hx of Transfusion in last 3 No 11/05/24 14:35 Months Date of Last Transfusion (if within last 3 months) Ever experience any problems No 11/05/24 14:35 with transfusion(s)? Specify any problems Hx of Preganancy in last 3 N/A 11/05/24 14:35 Months Nurse Filling Out Transfusion NBUCHER 11/05/24 14:35 & Questions: Date: 11/05/24 11/05/24 14:35 Time: 14:37 11/05/24 14:35 Patient unable to answer at this time (ie. confused, unrespo /Reproduction History /Reproductive History - facsimile machine operator: /Reproductive Hx- facsimile machine operator Hx Now No 11/05/24 14:35 Gestational Age (in weeks): EDC: Hx Hx Para Hx Section SAB No 11/05/24 14:35 [facility] Medical History (Updated 11/05/24 @ 16:23 by Jennifer Enriquez) Wears glasses High cholesterol History of diverticulitis Gastric reflux Heartburn Former smoker Sleep apnea Cardiology follow-up encounter History of echocardiogram History of atrial fibrillation PONV (postoperative nausea and vomiting) Anxiety and depression Thoracic lymphadenopathy Tobacco use Obesity Hyperlipidemia Home Medications ?Medication ?Instructions ?Recorded ?Last Taken ?Type diltiazem HCl 180 mg 180 mg PO QHS 12/05/18 Unknown History capsule,extended release 24 hr rivaroxaban 20 mg tablet (Xarelto) 20 mg PO QHS 11/13/23 Unknown History atorvastatin 80 mg tablet 80 mg PO QHS 02/05/24 Unknown History metoprolol tartrate 50 mg tablet 50 mg PO QHS 02/05/24 Unknown History guselkumab 100 mg/mL subcutaneous 100 mg subcut Q3M 11/05/24 Unknown History auto-injector (Tremfya) pantoprazole 40 mg tablet,delayed 40 mg PO BID #60 tabs 11/05/24 Unknown Rx release Allergy/AdvReac Type Severity Reaction Status Date / Time adhesive Allergy Rash Verified 11/05/24 14:31 Family History (Reviewed 02/05/24 @ 08:10 by Treva Ferrell RETAIL AND RESTAURANT ASSOCIATE, RETAIL AND RESTAURANT ASSOCIATE-C) Grandmother Lung cancer Father Heart disease Hypertension Mother Heart disease Hypertension Surgical History (Updated 11/05/24 @ 16:23 by Jennifer Enriquez) History of cardiac catheterization History of gastric surgery (~2020) bladder sling H/O section H/O: hysterectomy Social History (Reviewed 02/05/24 @ 08:10 by Treva Ferrell RETAIL AND RESTAURANT ASSOCIATE, RETAIL AND RESTAURANT ASSOCIATE-C) pets and animals: Yes pets and animals: dog(s) Smoking Status: Former smoker Tobacco: How many years used: 33 second hand exposure: Yes alcohol intake: never substance use type: does not use caffeine: Yes seatbelt use: always do you feel safe at home: Yes additional social history: [employer] 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
--- NOTE | 2024-11-09 | IMM_PTH ---
PATIENT: MISTI LEE LOC: EN U#:[id number] AGE/SX: 54/F ROOM: RE11/09/[address]: Dr. Cesar Mcadams DO : 1970 BED: DIS: 11/09/2024 SPEC #: [id number] RECD: 11/09/24 12:32 STATUS: OSCAR REQ #: [id number] EDMUNDO: 11/09/24 00:[address]: Cesar Mcadams DEPT: IMMUNOHISTOCHEMISTRY RECD BY: Belkis Sanchez ENTERED: 11/09/24 12:32 SP TYPE: IMMUNO OTHR DR: Ness Cabrera, DATA ANALYTICS SPECIALIST-C Tissues: Gastric mucous membrane Procedures: H Pylori (initial) PHYSICIAN & INSTITUTION [place] [id number] SPECIMEN INFORMATION: Tissue Source: A. Gastric antrum Clinical Info: Epigastric abdominal pain Specimen Number: [id number] CPT code: 95848 METHODOLOGY: Deparaffinized sections of prefer/formalin-fixed tissue or PAP/DQ stained slides are incubated with monoclonal/polyclonal antibodies/oligonucleotide probes. Localization is made via biotin free immunoperoxidase method. Appropriate controls are performed and reacted as expected. Results on target cell population are indicated in the following table: RESULTS: ANTIBODY / CLONE RESULT H Pylori (polyclonal) negative These tests were developed and their performance characteristics determined by [facility]. They may not have been cleared or approved by the U.S. Food and Drug Administration. The FDA has determined that such clearance or approval is not necessary. The above immunohistochemical/dualISH markers are ordered and reviewed by the Pathologist. INTERPRETATION: A. Gastric antrum, biopsy: Negative for Helicobacter pylori organisms. SJ:jeffery 11/10/24
--- NOTE | 2024-11-09 07:03 | PRE.ANES_ITS ---
ASA Classification* ASA Classification ASA Classification: 3 Assessment & Plan Anesthesia* Anesthesia Assessment Anesthesia Assessment: Discussed sedation and/or anesthesia options, risks, benefits, and alternatives with patient/parents/legal guardian/POA. Questions invited. The patient/parents/legal guardian/POA seems to understand and agrees to proceed with anesthesia plan. Reviewed the physical assessment, medical history, allergy history and patient home medications list prior to surgery/procedure/anesthetic and documented any changes. Performed airway and anesthesia risk assessments. Anesthesia Type Anesthesia Type: MAC Anesthesia Focused Assessment* Airway Assessment Mouth opens: >3 cm Mallampati Score: II Focused Labs Anesthesia Preop lab: CBC WBC 5.9 K/mm3 (4.4-11.0) 11/05/24 09:27 RBC 4.13 M/mm3 (4.2-5.4) L 11/05/24 09:27 Hgb 13.1 g/dL (12.0-15.0) 11/05/24 09:27 Hct 39.0 % (37-47) 11/05/24 09:27 Plt Count 307 K/mm3 (150-450) 11/05/24 09:27 CHEMISTRY Potassium 3.8 mmol/L (3.5-5.1) 05/26/15 09:15 Sodium 138 mmol/L (136-145) 05/26/15 09:15 BUN 11 mg/dL (7-18) 05/26/15 09:15 Creatinine 0.8 mg/dL (0.6-1.0) 05/26/15 09:15 Glucose 113 mg/dL (70-110) H 05/26/15 09:15 COAG Urine Test Negative Negative 12/24/13 06:20 Pre-Assessment Diagnosis/Proposed Procedure Planned Operative Procedure(s): EGD Anesthesia History 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 When Was Last Pacemaker Check QUESTION #4 FULL TEXT: You/Your Family Experience fever (hyperthermia) with Anesthesia Last Oral Intake Last Oral intake: Last Oral Intake NPO since Meds taken in AM with sips of water? Meds patient instructed to take am of surgery PONV PONV - raw products director: PONV - raw products director Female Yes 11/05/24 14:35 HX of Motion Sickness No 11/05/24 14:35 HX of N/V After Surgery Yes 11/05/24 14:35 Non-Smoker Yes 11/05/24 14:35 Duration of Surgery greater No 11/05/24 14:35 than 60 minutes Number of Risk Factors 3 11/05/24 14:35 PONV Score Moderate Risk 11/05/24 14:35 Height & Weight Height & Weight: Anesthesia: Height & Weight Height 4 ft 11 in 02/05/24 07:39 Respiratory Assessment Respiratory Assessment - raw products director: Respiratory Tract Infection Hx - raw products director Hx Respiratory Tract Infection No 11/05/24 14:35 STOP Sleep Apnea STOP Sleep Apnea - raw products director: STOP Sleep Apnea - raw products director Hx Hypertension No 11/05/24 14:35 Hx Sleep Apnea Yes: PT STATES NO LONGER 11/05/24 14:35 SINCE WEIGHT LOSS CPAP No 11/05/24 14:35 BIPAP No 11/05/24 14:35 Do you snore loudly (louder than talking or can be heard Do you often feel tired/ fatigued/ sleepy during daytime? Has anyone observed you stop breathing during sleep? STOP Results Positive 11/05/24 14:35 QUESTION #5 FULL TEXT : Do you snore loudly (louder than talking or can be heard through closed doors)? Tobacco Use History Tobacco Use History - raw products director: Tobacco Use History - raw products director Tobacco Use Cigarettes 07/26/23 14:41 Smoking Status Former smoker 11/05/24 14:35 Hx Tobacco Use Yes 11/05/24 14:35 Years Smoking Packs Smoked per Day Smoking Cessation Date was Yes - quit smoking within 15 11/05/24 14:35 within the last 15 years years Hx Smoking Cessation Date 04/18/24 11/05/24 14:35 Hx Smoking Cessation Counseling Hematologic Medial History Hematologic Hx - raw products director: Hematologic Medical Hx - hardware developer Hx of Blood Transfusion No 11/05/24 14:35 Hx of Transfusion in last 3 No 11/05/24 14:35 Months Date of Last Transfusion (if within last 3 months) Ever experience any problems No 11/05/24 14:35 with transfusion(s)? Specify any problems Hx of Preganancy in last 3 N/A 11/05/24 14:35 Months Nurse Filling Out Transfusion NBUCHER 11/05/24 14:35 & Questions: Date: 11/05/24 11/05/24 14:35 Time: 14:37 11/05/24 14:35 Patient unable to answer at this time (ie. confused, unrespo /Reproduction History /Reproductive History - raw products director: /Reproductive Hx- raw products director Hx Now No 11/05/24 14:35 Gestational Age (in weeks): EDC: Hx Hx Para Hx Section SAB No 11/05/24 14:35 PFSH Medical History Wears glasses High cholesterol History of diverticulitis Gastric reflux Heartburn Former smoker Sleep apnea Cardiology follow-up encounter History of echocardiogram History of atrial fibrillation PONV (postoperative nausea and vomiting) Anxiety and depression Thoracic lymphadenopathy Tobacco use Obesity Hyperlipidemia Home Medications ?Medication ?Instructions ?Recorded ?Last Taken ?Type diltiazem HCl 180 mg 180 mg PO QHS 12/05/18 Unknown History capsule,extended release 24 hr rivaroxaban 20 mg tablet (Xarelto) 20 mg PO QHS 11/13/23 Unknown History atorvastatin 80 mg tablet 80 mg PO QHS 02/05/24 Unknown History metoprolol tartrate 50 mg tablet 50 mg PO QHS 02/05/24 Unknown History guselkumab 100 mg/mL subcutaneous 100 mg subcut Q3M 11/05/24 Unknown History auto-injector (Tremfya) pantoprazole 40 mg tablet,delayed 40 mg PO BID #60 tabs 11/05/24 Unknown Rx release Allergy/AdvReac Type Severity Reaction Status Date / Time adhesive Allergy Rash Verified 11/05/24 14:31 Family History Grandmother Lung cancer Father Heart disease Hypertension Mother Heart disease Hypertension Surgical History History of cardiac catheterization History of gastric surgery (~2020) bladder sling H/O section H/O: hysterectomy Social History pets and animals: Yes pets and animals: dog(s) Smoking Status: Former smoker Tobacco: How many years used: 33 second hand exposure: Yes alcohol intake: never substance use type: does not use caffeine: Yes seatbelt use: always do you feel safe at home: Yes additional social history: [employer] 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
[2024-11-09 07:20] VITALS: BP 113/64; PULSE 68; RESP 16; TEMP 36.7; O2SAT 100; BMI 31.8
--- NOTE | 2024-11-09 07:20 | HP.PCM_ITS ---
HPI - General General Date of Admission: 11/09/24 Date of Service: 11/09/24 Chief Complaint: Abdominal pain HPI Narrative MISTI LEE, is a 54 F who presents to the office today for establishment with [facility]. Over the past 2 months pt has had burning epigastric pain. It does not ever go away and does not get worse with eating or on an empty stomach. She is having problems with sleep as the burning sensation keeps her awake. She also has some regurgitation of liquid during the night. She is on blood thinners but does not take NSAIDs on a regular basis. She has never struggles with this before. She has been on pantoprazole for many years 40 mg daily. Her PCP gave her sucralfate which has helped with some of the nausea but not the burning. Pt is s/p gastric bypass 3 years ago. She has never had an EGD before to assess her upper GI trac t. She denies lower abd pain, constipation, diarrhea, melena or vomiting. [facility] Medical History Wears glasses High cholesterol History of diverticulitis Gastric reflux Heartburn Former smoker Sleep apnea Cardiology follow-up encounter History of echocardiogram History of atrial fibrillation PONV (postoperative nausea and vomiting) Anxiety and depression Thoracic lymphadenopathy Tobacco use Obesity Hyperlipidemia Home Medications ?Medication ?Instructions ?Recorded ?Last Taken ?Type diltiazem HCl 180 mg 180 mg PO QHS 12/05/18 11/08/24 History capsule,extended release 24 hr rivaroxaban 20 mg tablet (Xarelto) 20 mg PO QHS 11/13/23 11/07/24 History atorvastatin 80 mg tablet 80 mg PO QHS 02/05/24 11/08/24 History metoprolol tartrate 50 mg tablet 50 mg PO QHS 02/05/24 11/08/24 History guselkumab 100 mg/mL subcutaneous 100 mg subcut Q3M 11/05/24 Unknown History auto-injector (Tremfya) pantoprazole 40 mg tablet,delayed 40 mg PO BID #60 tabs 11/05/24 11/08/24 Rx release Allergy/AdvReac Type Severity Reaction Status Date / Time adhesive Allergy Rash Verified 11/09/24 07:19 Family History Grandmother Lung cancer Father Heart disease Hypertension Mother Heart disease Hypertension Surgical History History of cardiac catheterization History of gastric surgery (~2020) bladder sling H/O section H/O: hysterectomy Social History pets and animals: Yes pets and animals: dog(s) Smoking Status: Former smoker Tobacco: How many years used: 33 second hand exposure: Yes alcohol intake: never substance use type: does not use caffeine: Yes seatbelt use: always do you feel safe at home: Yes additional social history: [employer] 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 Physical 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 Const alert, oriented x3, no apparent distress and healthy appearing General Appearance: cooperative GI normal to inspection, nondistended, normoactive bowel sounds, soft to palpation, non-tender and non-distended Percussion: normal to percussion Rectal Exam: deferred Assessment & Plan Assessment/Plan (1) Epigastric abdominal pain: PLAN: [facility] [address] [place] [address] OFFICE VISIT Date of Service: 11/05/24 MR#: [id number] Acct: [id number] Name: MISTI LEE Rep #: [id number] : 1970 Provider: STEPHANY Diaz Age/Sex: 54/F Location: [facility] [place] Status: Signed Intake Vital Signs 02/04/2407:39 Height 4 ft 11 in Weight: 177 lb BMI 35.7 BP 137/78 H Blood Pressure Location Lt brachial Position Sitting Respiration 18 Pulse 71 Pulse Source Monitor Temp 97.8 F Pulse Oximetry (%) 97 Oxygen Delivery Method room air Intake Visit Reasons: Stomach pain Chief Complaint: epigastric pain Allergies adhesive Allergy (Verified 02/05/24 08:03) Rash Medications ?Medication ?Instructions ?Recorded ?Confirmed ?Type aspirin 81 mg chewable tablet 81 mg PO DAILY@0800 12/11/13 11/05/24 History diltiazem HCl 180 mg 180 mg PO DAILY 12/05/18 11/05/24 History capsule,extended release 24 hr albuterol sulfate 90 mcg/actuation 2 puff inhalation Q6H PRN 01/01/19 11/05/24 Rx aerosol inhaler shortness of breath or wheezing #18 grams guaifenesin 600 mg tablet, 600 mg PO BID #60 tabs 11/13/23 02/05/24 Rx extended release 12 hr rivaroxaban 20 mg tablet (Xarelto) 20 mg PO DAILY 11/13/23 11/05/24 History atorvastatin 80 mg tablet 80 mg PO QDAY 02/05/24 02/05/24 History metoprolol tartrate 50 mg tablet 50 mg PO QDAY 02/05/24 11/05/24 History pantoprazole 40 mg tablet,delayed 40 mg PO QDAY 02/05/24 11/05/24 History release tirzepatide 5 mg/0.5 mL mg subcut 02/05/24 11/05/24 History subcutaneous pen injector (Mounjaro) venlafaxine 75 mg capsule,extended 150 mg PO DAILY 02/05/24 02/05/24 History release 24 hr pantoprazole 40 mg tablet,delayed 40 mg PO BID #60 tabs 11/05/24 11/05/24 Rx release tirzepatide 15 mg/0.5 mL 15 mg subcut QWEEK 11/05/24 11/05/24 History subcutaneous pen injector (Mounjaro) Is last menstrual period known: No Patient : No Have you fallen in the past year?: No Nurse's Note: OV 11.05.24 Pt here to establish care with [facility] for indigestion, nausea, abdominal discomfort for over a month. Still No prior hx of colonoscopy or EGD. Reports still having her gallbladder. Dec 03 planned tummy tuck. Pt has been t aking Carafate for 2 weeks and pantoprazole with no relief. [facility] Medical History (Updated 11/05/24 @ 09:01 by STEPHANY Diaz) Anxiety and depression Thoracic lymphadenopathy Tobacco use Obesity Hyperlipidemia Surgical History bladder sling H/O section H/O: hysterectomy Family History Grandmother Lung cancerFather Heart disease HypertensionMother Heart disease Hypertension Social History (Reviewed 03/20/24 @ 08:10 by Treva Ferrell DIRECTOR OF DEVELOPMENT AND MARKETING, DIRECTOR OF DEVELOPMENT AND MARKETING-C) pets and animals: Yes pets and animals: dog(s) Tobacco: How many years used: 33 second hand exposure: Yes alcohol intake: never substance use type: does not use caffeine: Yes seatbelt use: always do you feel safe at home: Yes additional social history: Darren Gallegos 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 Over the past 2 months pt has had burning epigastric pain. It does not ever go away and does not get worse with eating or on an empty stomach. She is having problems with sleep as the burning sensation keeps her awake. She also has some regurgitation of liquid during the night. She is on blood thinners but does not take NSAIDs on a regular basis. She has never struggles with this before. She has been on pantoprazole for many years 40 mg daily. Her PCP gave her sucralfate which has helped with some of the nausea but not the burning. Pt is s/p gastric bypass 3 years ago. She has never had an EGD before to assess her upper GI tract. She denies lower abd pain, constipation, diarrhea, melena or vomiting. ROS Const Constitutional: Positive for fatigue; No fever(s) or weight change ENT ENT: No difficulty swallowing Gastro GI: Positive for abdominal pain, bloating, constipation, heartburn, excessive flatus, Blood in stool and nausea/dyspepsia; No belching, change in bowel habits, change in stool character, coffee ground emesis, cramping, diarrhea, difficulty swallowing, feeling full early, incontinent of stools, Vomiting blood/hematemesis, loose stools, Black,tarry stools, pain with swallowing, vomiting or other Musc Musculoskeletal: No joint pain Skin Skin: No yellowing of the eye or itchy eyes Psych Psychiatric: Positive for anxiety and No depression Endo Endocrine: Positive for fatigue; No weight change Aller/Imm Allergy/Immunologic: No itchy eyes Jsee/Lymp Hematologic/Lymphatic: No easy bleeding or easy bruising Exam Const General: cooperative and comfortable Nutritional Appearance: average body habitus and well nourished HENMT Head: normal to inspection Ears: hearing grossly normal bilaterally Nose: external nose normal Face and sinus: normal facial exam Eyes General: appearance normal, both eyes and all related structures Neck Neck: normal visual inspection Chest Chest palpation & inspection: normal inspection of the chest and normal palpation of entire chest wall Resp Effort & Inspection: normal respiratory effort Auscultation: Bilateral: Clear to Auscultation Cardio Palpation: normal PMI Rate: regular rate Rhythm: regular rhythm GI Inspection: normal to inspection Auscultation: normal bowel sounds Percussion: normal to percussion Palpation: no hepatosplenomegaly Skin General: no rashes or lesions noted Neuro General: patient alert Extrem General: normal to inspection Psych Affect: normal affect Assessment and Plan Assessment and Plan (1) Epigastric abdominal pain: Status: Acute Plan: This is a 54 yo female pt with acute epigastric pain for 2 months. She has been on PPI and sucralfate therapy which has not helped. She is s/p gastric bypass surgery 3 years ago and has never had an EGD. Pt is on blood thinners but denies NSAID use. She will need to undergo EGD to assess her upper GI tract for ulcers or inflammation. I will increase her pantoprazole to 40 mg BID and she will continues the sucralfate. CBC ordered to ensure she is not bleeding in her GI tract. She has plans to stop smoking and I encouraged her. -Pantoprazole 40 mg BID -CBC -EGD -Smoking cessation -f/u after procedure Orders: Orders CBC W/Diff, Automated Today R10.13 - Epigastric pain Medications: New pantoprazole 40 mg PO BID 60 tabs 2RF
--- NOTE | 2024-11-09 08:15 | EGD_PTH ---
PATIENT: MISTI LEE LOC: EN U#:[id number] AGE/SX: 54/F ROOM: RE11/09/[address]: Dr. Cesar Mcadams DO : 1970 BED: DIS: 11/09/2024 SPEC #: [id number] RECD: 11/09/24 08:52 STATUS: OSCAR REKaruna #: [id number] EDMUNDO: 11/09/24 08:[address]: Cesar Mcadams DEPT: SURGICAL PATHOLOGY RECD BY: Aline Gibson ENTERED: 11/09/24 12:41 SP TYPE: EGD BIOPSY OT DR: Ness Cabrera, PUNCH FINISHER-C Tissues: A - Gastric mucous membrane B - Duodenum, NOS Procedures: Surgery Specimen Level IV HEADER OPERATION: EGD PRE-OP DIAGNOSIS: Epigastric abdominal pain TISSUE SUBMITTED: A. Gastric antrum, B. Duodenum MICROSCOPIC DIAGNOSIS A. Gastric antrum, biopsy: Mild gastritis. See microscopic description and comment. B. Duodenum biopsy: Fragments of duodenal mucosa, no pathologic diagnosis. 11/10/2024 COMMENT A. The results of immunohistochemistry for Helicobacter pylori will be reported separately ([id number]). MICROSCOPIC DESCRIPTION Slides are reviewed. The specimen shows fragments of gastric mucosa with chronic inflammatory cell infiltrates in the lamina propria consisting of lymphocytes and plasma cells, consistent with mild chronic gastritis. GROSS DESCRIPTION A. Received is one container labeled with the patient name and designated gastric antrum. The specimen consists of two irregular fragments of light montaño soft tissue that in aggregate measures 1 x 0.2 x 0.1 cm. The specimen is totally submitted in one cassette. B. Received is one container labeled with the patient name and designated duodenum. The specimen consists of multiple irregular fragments of light montaño soft tissue that in aggregate measure 1.5 x 0.2 x 0.1 cm. The specimen is totally submitted in one cassette. /MS:jeffery 11/09/24 TC:3 CPT: 92573 x2
[2024-11-09 08:35] VITALS: BP 113/64; BP 89/42; PULSE 70; RESP 18; TEMP 36.6; O2SAT 97
--- NOTE | 2024-11-09 08:39 | OP.CCLET_ITS ---
11/09/2024 Paulie Renner Re : Upper GI endoscopy procedure for Vanessa Parekh Dear Deborah This procedure was performed on Saturday, November 09, 2024. My impressions and recommendations are as follows: Impressions : - Normal esophagus. - Gastroparesis. - Erythematous mucosa in the antrum. Biopsied. - Erythematous duodenopathy. Biopsied. Recommendations : - Discharge patient to home. - Resume previous diet. - Continue present medications. - Await pathology results. My findings are described in the full procedure note, which is enclosed. If I can be of further assistance, please feel free to contact me at . Sincerely, Cesar Mcadams, 11/09/2024 8:39:12 AM This report has been signed electronically.
--- NOTE | 2024-11-09 08:39 | OP.EGD_ITS ---
Patient Name: Vanessa Parekh Procedure Date: 11/09/2024 8:18 AM Date of : 1970 Age: 54 Procedure: Upper GI endoscopy Indications: Epigastric abdominal pain, Functional Dyspepsia, Indigestion, Heartburn Providers: Cesar Mcadams DO Referring MD: Ness Cabrera Np-garth Medicines: Monitored Anesthesia Care Patient Profile: This is a 54 year old female. Refer to note in patient chart for documentation of history and physical. Patient has symptoms of chronic abdominal distention and chronic epigastric abdominal pain. Complications: No immediate complications. Procedure: Pre-Anesthesia Assessment: - Prior to the procedure, a History and Physical was performed, and patient medications and allergies were reviewed. The patient is competent. The risks and benefits of the procedure and the sedation options and risks were discussed with the patient. All questions were answered and informed consent was obtained. Patient identification and proposed procedure were verified by the physician in the pre-procedure area. Mental Status Examination: alert and oriented. Airway Examination: normal oropharyngeal airway and neck mobility. Respiratory Examination: clear to auscultation. CV Examination: normal. Prophylactic Antibiotics: The patient does not require prophylactic antibiotics. Prior Anticoagulants: The patient has taken no anticoagulant or antiplatelet agents except for NSAID medication. ASA Grade Assessment: II - A patient with mild systemic disease. After reviewing the risks and benefits, the patient was deemed in satisfactory condition to undergo the procedure. The anesthesia plan was to use monitored anesthesia care (MAC). Immediately prior to administration of medications, the patient was re-assessed for adequacy to receive sedatives. The heart rate, respiratory rate, oxygen saturations, blood pressure, adequacy of pulmonary ventilation, and response to care were monitored throughout the procedure. The physical status of the patient was re-assessed after the procedure. After obtaining informed consent, the endoscope was passed under direct vision. Throughout the procedure, the patient's blood pressure, pulse, and oxygen saturations were monitored continuously. The gastroscope was introduced through the mouth, and advanced to the second part of duodenum. The upper GI endoscopy was accomplished without difficulty. The patient tolerated the procedure well. Scope In: 8:26:43 AM Scope Out: 8:30:34 AM Total Procedure Duration Time 0 hours 3 minutes 51 seconds Findings: The examined esophagus was normal. Suspect gastroparesis due to absence of peristalsis and patient symptoms. Patchy mildly erythematous mucosa without bleeding was found in the gastric antrum. Biopsies were taken with a cold forceps for histology. Verification of patient identification for the specimen was done. Estimated blood loss was minimal. Patchy mildly erythematous mucosa without active bleeding and with no stigmata of bleeding was found in the duodenal bulb. Biopsies were taken with a cold forceps for histology. Verification of patient identification for the specimen was done. Estimated blood loss was minimal. A medium-sized hiatal hernia was present. Evidence of a sleeve gastrectomy was found in the gastric body. This was characterized by healthy appearing mucosa. Impression: - Normal esophagus. - Gastroparesis. - Erythematous mucosa in the antrum. Biopsied. - Erythematous duodenopathy. Biopsied. Recommendation: - Discharge patient to home. - Resume previous diet. - Continue present medications. - Await pathology results. Procedure Code(s): --- Professional --- 17861, Esophagogastroduodenoscopy, flexible, transoral; with biopsy, single or multiple CPT copyright 2021 [employer]. All rights reserved. The codes documented in this report are preliminary and upon educational resource coordinator review may be revised to meet current compliance requirements. Cesar Mcadams DO 11/09/2024 8:39:12 AM This report has been signed electronically. Number of Addenda: 0 Note Initiated On: 11/09/2024 8:18 AM
[2024-11-09 08:40] VITALS: BP 113/64; BP 76/55; BP 85/45; PULSE 70; PULSE 74; RESP 16; O2SAT 95; O2SAT 97
--- NOTE | 2024-11-09 08:40 | PCM.POST.ANE ---
Anesthesia: Postop Eval I Current Vital Signs Temperature: 97.5 F Pulse Rate: 81 Blood Pressure: 89/42 Respiratory Rate: 16 Pulse Ox: 97 Oxygen Delivery Method: Room Air Assessment Airway patent: Yes Spontaneous unlabored respirations: Yes Mental status: Asleep nausea: No Vomiting: No Anesthesia Complication: No Fluid Hydration Crystalloid volume administer (ml): 30 Total IV fluid infused: 30 Progress Note Anesthesia document: Postop Eval 1 completed: Yes
[2024-11-09 08:41] VITALS: BP 89/42; PULSE 81; RESP 16; TEMP 36.4; O2SAT 97
[2024-11-09 08:50] VITALS: BP 113/64; BP 90/54; PULSE 69; RESP 16; TEMP 36.9; O2SAT 96
[2024-11-09 09:03] VITALS: BP 113/64
--- NOTE | 2024-11-09 14:52 | PCM.POSTANE2 ---
Anesthesia Postop Eval I Sum Postop Eval Completion status Anesthesia document: Postop Eval 1 completed: Yes Anesthesia Postop Eval I Summary Anesthesia Postop Eval I Summary: Anesthesia Postop Eval I: Assessment Summary Airway patent Yes 11/09/24 08:41 [email or web address] Spontaneous unlabored Yes 11/09/24 08:41 [email or web address] respirations Mental status Asleep 11/09/24 08:41 [email or web address] nausea No 11/09/24 08:41 [email or web address] Vomiting No 11/09/24 08:41 [email or web address] Anesthesia Postop Eval I: Fluid Summary Crystalloid volume administer 30 11/09/24 08:41 [email or web address] (ml) Colloids volume administered ( ml) Blood Product volume administered (ml) Total IV fluid infused 30 11/09/24 08:41 [email or web address] Anesthesia Postop Eval I: Summary Notes Anesthesia Complication No 11/09/24 08:41 [email or web address] Anesthesia Complication Comment: Post-operative progress note Anesthesia: Postop Eval II Evaluation Mental status: Awake and Calm Pain Level: 0 nausea: No Vomiting: No Complications Anesthesia Complication: No
== END 2024-11-09 09:17 | disposition home or self-care (01) ==
LOC: EN 06:43 → AC 06:44
PROVIDERS: PCP Nurse Practitioner Family; Referring Provider Nurse Practitioner Family; Visit Provider Internal Medicine Gastroenterology
PROC: 0DJ08ZZ Inspection of Upper Intestinal Tract, Via Natural or Artificial Opening Endoscopic (ICD-10-PCS; CPT 43235; principal; 2024-11-09 08:10)
DX: K29.70 Gastritis, unspecified, without bleeding (principal); Z79.01 Long term (current) use of anticoagulants; Z87.891 Personal history of nicotine dependence; E78.00 Pure hypercholesterolemia, unspecified; K31.84 Gastroparesis; Z79.899 Other long term (current) drug therapy; Z98.84 Bariatric surgery status; K21.9 Gastro-esophageal reflux disease without esophagitis; Z79.82 Long term (current) use of aspirin; Z79.85 Long-term (current) use of injectable non-insulin antidiabetic drugs; K44.9 Diaphragmatic hernia without obstruction or gangrene
CPT/HCPCS: 43239; 88305; 88342; A4216; J2405

== ENCOUNTER → 2025-01-14 | Outpatient (CLI) | payer BC, SELFPAY ==
--- NOTE | 2025-01-14 13:30 | CT_ITS ---
PROCEDURE: LOW DOSE CT LUNG SCREENING REASON FOR EXAM: Patient has smoked 1 pack per day for multiple years. Patient quit 6 months ago. TECHNIQUE: Low Dose CT Lung Screening without contrast COMPARISON: Comparison is made with prior study dated December 03, 2023. FINDINGS: PULMONARY NODULES: (Only nodules >6mm are reported) Nodules described below are on series 1 unless otherwise specified. Pulmonary Nodules: No concerning pulmonary nodules. Hardware:None Lymph Nodes:Small mediastinal lymph nodes. Heart and Vasculature:Normal heart size. No pericardial effusion.Thoracic aorta and pulmonary arteries have normal contours; noncontrast technique limits evaluation. Coronary Artery Calcifications: Present mitral valve annulus calcification. Lungs and Airways: Mild emphysematous changes are present. Stable minimal linear scarring in the lingular segment of the left upper lobe. Pleura:No pleural effusion. No pneumothorax. Upper Abdomen:Small hiatal hernia. Stable 2.5 cm right adrenal nodule suggestive of adenoma. Bones:Degenerative changes of the thoracic spine. CT/Low Dose CT Lung Screening IMPRESSION: 1. BASED ON THE ACR LUNG RADS FOR THE MOST SUSPICIOUS NODULE (IF ANY) DESCRIBE D IN THIS REPORT, THE OVERALL LUNG RADS SCORE IS 2.2 - BENIGN (BASED ON IMAGING FEATURES OR INDOLENT BEHAVIOR). RECOMMEND 12-MON TH SCREENING LDCT.. 2. SMOKING CESSATION COUNSELING IS RECOMMENDED IF THE PATIENT IS STILL SMOKING . 3. OTHER SIGNIFICANT FINDINGSNone. One or more dose reduction techniques were used (e.g., Automated exposure contr ol, adjustment of the mA and/or kV according to patient size, use of iterative reconstruction technique). The following information is provided for reference:Lung-RADS 2021 Assessment C ategories. Additional information involving Lung-RADS is available at [email or web address]. 0-INCOMPLETE 1-NEGATIVE:No nodules or definitely benign nodules. Complete, central, popcorn , or centric ring calcifications OR fat containing 2-BENIGN APPEARANCE (based on imaging features or indolent behavior). Juxtaple ural nodule: < 10mm AND solid; smooth margins; oval, entiform, or triangular shape Solid nodule: <6mm at baseline or new< 4mm Part solid Nodule: < 6mm total mean diameter at baseline Nonsolid nodule:(GGN) < 30mm OR >=30mm stable or slowly growing Airway nodule, subsegmental at baseline, new, or stable Category 3 nodule stabl e or decreased in size at 6-month follow-up CT or Category 3 or 4A nodules that resolve on follow-up OR category 4B findings prov en to be benign following diagnotic work up. 3 - Probably Benign (Based on imaging features or behavior) Solid Nodule: >= 6 to <8mm at baseline OR new 4 to <6mm Part-solid nodule: >= 6mm toal mean diam. with solid component <6mm at baseline OR new < 6mm total mean diam. Non-solid nodule: GGN >= 30mm at baseline or new Atypical pulmonary cyst: Growing cystic component (mean diam.) of thick-walled cyst Category 4A nodule stable or decreased in size at 3-month follow-up CT (excl.ai rway). 4A - Suspicious Solid nodule: >=8 to < 15mm at baseline OR growing < 8mm OR new 6 to < 8mm Part solid nodule: >= 6mm total mean diam. w/ solid component >=6mm to < 8mm at baseline OR new or growing < 4mm solid component Airway nodule, segmental or more proximal at baseline or new Atypical pulmonary cyst: Thick-walled OR multilocular at baseline OR becomes mu ltilocular 4B - Very Suspicious Airway nodule, segmental or more proximal, and stable or growing Solid nodule: >= 15mm at baseline OR new or growing >= 8mm Part solid nodule: Solid component >= 8mm OR new or growing >= 4mm solid compon ent Atypical pulmonary cyst: Thick-walled with growing wall thickness/nodularity OR Growing multilocular (mean diam.) OR Multilocular with increased loculation or new/increased opacity Slow-growing solid or part solid nodule w/ growth over multiple screening exams 4X - Very Suspicious Category 3 or 4 nodules with additional features that increase the suspicion fo r lung cancer. S - Clinically Significant or potentially significant findings (non-lung cancer ) 3. OTHER SIGNIFICANT FINDINGSNone. One or more dose reduction techniques were used (e.g., Automated exposure contr ol, adjustment of the mA and/or kV according to patient size, use of iterative reconstruction technique). The following information is provided for reference:Lung-RADS 2021 Assessment C ategories. Additional information involving Lung-RADS is available at [email or web address]. 0-INCOMPLETE 1-NEGATIVE:No nodules or definitely benign nodules. Complete, central, popcorn , or centric ring calcifications OR fat containing 2-BENIGN APPEARANCE (based on imaging features or indolent behavior). Juxtaple ural nodule: < 10mm AND solid; smooth margins; oval, entiform, or triangular shape Solid nodule: <6mm at baseline or new< 4mm Part solid Nodule: < 6mm total mean diameter at baseline Nonsolid nodule:(GGN) < 30mm OR >=30mm stable or slowly growing Airway nodule, subsegmental at baseline, new, or stable Category 3 nodule stabl e or decreased in size at 6-month follow-up CT or Category 3 or 4A nodules that resolve on follow-up OR category 4B findings prov en to be benign following diagnotic work up. 3 - Probably Benign (Based on imaging features or behavior) Solid Nodule: >= 6 to <8mm at baseline OR new 4 to <6mm Part-solid nodule: >= 6mm toal mean diam. with solid component <6mm at baseline OR new < 6mm total mean diam. Non-solid nodule: GGN >= 30mm at baseline or new Atypical pulmonary cyst: Growing cystic component (mean diam.) of thick-walled cyst Category 4A nodule stable or decreased in size at 3-month follow-up CT (excl.ai rway). 4A - Suspicious Solid nodule: >=8 to < 15mm at baseline OR growing < 8mm OR new 6 to < 8mm Part solid nodule: >= 6mm total mean diam. w/ solid component >=6mm to < 8mm at baseline OR new or growing < 4mm solid component Airway nodule, segmental or more proximal at baseline or new Atypical pulmonary cyst: Thick-walled OR multilocular at baseline OR becomes mu ltilocular 4B - Very Suspicious Airway nodule, segmental or more proximal, and stable or growing Solid nodule: >= 15mm at baseline OR new or growing >= 8mm Part solid nodule: Solid component >= 8mm OR new or growing >= 4mm solid compon ent Atypical pulmonary cyst: Thick-walled with growing wall thickness/nodularity OR Growing multilocular (mean diam.) OR Multilocular with increased loculation or new/increased opacity Slow-growing solid or part solid nodule w/ growth over multiple screening exams 4X - Very Suspicious Category 3 or 4 nodules with additional features that increase the suspicion fo r lung cancer. S - Clinically Significant or potentially significant findings (non-lung cancer ) Reading Location: [id number]
== END | disposition home or self-care (01) ==
PROVIDERS: PCP Nurse Practitioner Family; Referring Provider Nurse Practitioner Acute Care; Visit Provider Nurse Practitioner Acute Care
DX: F17.200 Nicotine dependence, unspecified, uncomplicated (principal); Z72.0 Tobacco use
CPT/HCPCS: 71271